=== PATIENT | female | born 1960 | race Caucasian/White ===

== ENCOUNTER 2016-10-06 16:20 | Inpatient (IN) | payer MEDICAID ==
--- NOTE | ~2016-10-06 | DS ---
Discharge Summary [place] [id number] [facility] [place]. [address] NAME: LEON RANDHAWA : 56 STATUS : DIS IN PAT#: [id number] AGE: 56 ADM/REG DATE : 10/06/16 MR#: [id number] REPORT SERV DATE: 10/15/16 DICTATED BY: LEANDRO ANGEL DATE: 10/14/16 REPORT STATUS : Draft TRANSCRIBED BY: MODL DATE: 10/14/16 ADMISSION DATE: 10/06/2016 DISCHARGE DATE: 10/14/2016 REASON FOR ADMISSION: Swollen lip and face with infection. HPI: Please refer to Dr. Chavez's history and physical dated 10/06/2016 for the patient's admission. In brief, the patient was admitted to the Hospitalist Service for facial cellulitis with abscess formation. HOSPITAL COURSE: From admission to 10/13/2016, please refer to Dr. Elizabeth Aguillon's interim summary. In brief, the patient was diagnosed with sepsis secondary to MRSA facial cellulitis with abscess status post I and D x2. In brief, Dr. Majano with Oral Maxillofacial Surgery performed 2 I and D's with cervical cultures coming back as positive for MRSA. She was treated with IV vancomycin. I assumed care of this patient on 10/13/[address] Aguillon who had also added Augmentin. Patient has remained stable. She has met maximal hospitalization and will be discharged today in stable condition to follow up with Dr. Majano. DISCHARGE DIAGNOSES: Sepsis secondary to MRSA, facial cellulitis with abscess status post I and D x2, left thigh MRSA abscess spontaneously resolved, protein S deficiency, hypothyroidism, morbid obesity, type 2 diabetes. PROCEDURES: Include, consultation with Dr. Majano of [facility], incision and debridement x2, CT scan of face with contrast, CT scan of the face and neck without contrast. DISCHARGE MEDICATIONS: Include, clindamycin 300 mg 4 times a day for 7 days; acyclovir; Cymbalta 60 mg daily and 30 mg at bedtime; Vytorin 1 tab at bedtime; folic acid; Neurontin 300 mg 3 times a day; insulin sliding scale Levemir 35 units at bedtime; Synthroid 50 mcg daily; methotrexate 12.5 mg every 7 days; Lopressor 50 mg twice; Nexium 40 mg at bedtime; Lyrica 150 mg 3 times a day; Zanaflex 4 mg at bedtime and twice a day p.r.n., Clinton p.r.n. pain; Desyrel 100 mg at bedtime; Coumadin 2 mg Wednesday, Wednesday, Wednesday, and Wednesday, Wednesday, , Wednesday; metformin 500 mg twice a day; calcium daily; Mobic 15 mg at bedtime; Atarax p.r.n. Patient to follow up with Dr. Majano in 1 week as a followup. This is Dr. Leandro Angel spending over 30 minutes on discharge planning and coordination of care on Ms. Ring LAMONT/MARGO Leandro Angel MD Discharge Summary [address] [address] NAME: LEON RANDHAWA : 56 STATUS : DIS IN PAT#: [id number] AGE: 56 ADM/REG DATE : 10/06/16 MR#: [id number] REPORT SERV DATE: 10/15/16 DICTATED BY: LEANDRO ANGEL DATE: 10/14/16 REPORT STATUS : Draft TRANSCRIBED BY: MARGO DATE: 10/14/16 / [id number]
--- NOTE | ~2016-10-06 | OP ---
Record Of Operation [facility] [address] [place]. [address] NAME: LEON RANDHAWA : 56 STATUS : ADM IN [facility]#: [id number] AGE: 56 ADM/REG DATE : 10/06/16 MR#: [id number] REPORT SERV DATE: 10/13/16 DICTATED BY: GRISELDA CONNOR DATE: 10/12/16 REPORT STATUS : Draft TRANSCRIBED BY: MODL DATE: 10/12/16 DATE OF PROCEDURE: 10/10/2016 This was performed at [facility]. PRIMARY SURGEON: Griselda Connor D.D.S., M.D. INDICATIONS FOR PROCEDURE: This is a 56-year-old female, who was an inpatient at [facility]. The patient was status post incision and drainage of the left lip and buccal space. On 10/06/2016, the patient was noted to have increased swelling and pain on the left side of the face. The patient was evaluated clinically and radiographically on 10/09/2016, and was noted to have an increasing left hydro operator space abscess. HISTORY: The patient has had a history of MRSA type infections. It was determined that the patient would benefit from incision and drainage of the left hydro operator space infection to be performed under general endotracheal tube anesthesia. The risks and benefits of the procedure were discussed with the patient. The risks included, but were not limited to bleeding, infection, further paresthesia, scarring as well as the possibility of future surgery. The patient expressed an understanding and wished to proceed with the planned procedure. PREOPERATIVE DIAGNOSIS: Left hydro operator space abscess. POSTOPERATIVE DIAGNOSIS: Left hydro operator space abscess. OPERATION PERFORMED: Incision and drainage of the left hydro operator spaces using an extraoral approach. ANESTHESIA: General endotracheal tube anesthesia. DRAINS: Three quarter-inch Darlington drains. ESTIMATED BLOOD LOSS: 10 mL. IV FLUIDS: Total of 300 mL of lactated Ringer's. SPECIMENS: Cultures were sent for aerobic and anaerobic evaluation. COMPLICATIONS: None. PROCEDURE: After adequate informed consent, the patient was taken to the main operating room and placed in semi-Santamaria position on the operating room table. After uneventful induction of general endotracheal tube anesthesia, the patient prepped and draped in standard sterile fashion for oral maxillofacial surgical procedure. Local anesthetic consisting of 2% lidocaine with 1:100,000 epinephrine was injected in a series of infiltrations and blocks into the left mandibular and left neck regions for a total of 6 mL. Attention was directed Record Of Operation [address] [place]. [address] NAME: LEON RANDHAWA : 56 STATUS : ADM IN PAT#: [id number] AGE: 56 ADM/REG DATE : 10/06/16 MR#: [id number] REPORT SERV DATE: 10/13/16 DICTATED BY: GRISELDA CONNOR DATE: 10/12/16 REPORT STATUS : Draft TRANSCRIBED BY: MARGO DATE: 10/12/16 to the left submandibular region where an incision was placed approximately 3 to 4 cm inferior to the inferior border. Two separate incisions of about 1.5 cm were placed in the submandibular submental spaces. Blunt dissection was performed using Cheryl hemostats in a superior direction. The inferior border was identified and dissection was carried on lateral surface of the mandible. A subperiosteal fashion dissection was carried intraorally on the left lateral surface of the mandible. A #15 blade was used to make an incision intraorally in the left vestibule. Further dissection was then carried onto the medial surface of the mandible and dissection was then also carried out in the submental space and carried superiorly to the mandibular lip. Sites were copiously irrigated with normal saline. Mild purulence was noted with some granulation tissue. At this time, a Darlington drain was placed in a [id number] fashion on the lateral surface of the mandible from the neck incision to the oral cavity. The drain was in place in the submandibular space on the medial surface of the mandible, and then a third Darlington drain was placed in the lower lip buccal space region. The Darlington drains were secured using 3-0 silk suture in an interrupted fashion. The sites were then copiously irrigated using normal saline. Prior to completion of the procedure, it was noted that sponge, needle, and instrument counts were correct. There were no complications during the procedure, and the patient was awakened from anesthesia and then transferred to the PACU awake and in good condition. ANTWON/MARGO Griselda Connor D.D.S., M.D. / [id number] CC: Elizabeth Aguillon M.D.
--- NOTE | ~2016-10-06 | IDS ---
Interim Discharge Summary [facility] [address] [place]. [address] NAME: LEON RANDHAWA : 56 STATUS : ADM IN LOCATED WITHIN [facility]#: [id number] AGE: 56 ADM/REG DATE : 10/06/16 MR#: [id number] REPORT SERV DATE: 10/13/16 DICTATED BY: MAKENZIE NICOLAS DATE: 10/12/16 REPORT STATUS : Draft TRANSCRIBED BY: MARGO DATE: 10/12/16 ADMISSION DATE: 10/06/2016 DISCHARGE DATE: DIAGNOSES: 1. Sepsis. 2. Methicillin-resistant Staphylococcus aureus, facial cellulitis with abscess, status post I and D x2. 3. Left thigh Methicillin-resistant Staphylococcus aureus abscess. 4. Protein S deficiency. 5. Hypothyroidism. 6. History of type 2 diabetes. CONSULTANTS: Oromaxillary surgeon, Dr. Henriquez and general surgeon, Dr. Gan. PROCEDURES: I and D x2 by oromaxillary surgeon of left buccal space abscess. HOSPITAL COURSE: Please see H and P dictated by Dr. Rosas. This is a 56 years old female with a past medical history of protein S deficiency, on chronic anticoagulation. Also, a history of MRSA in the past presented with left jaw induration with erythema and swollen lip. She had a CT of the face in the ER with findings of soft tissue cellulitis and findings of abscess, Oromaxillary Surgery was consulted. The patient is now status post I and D x2 by Oromaxillary Surgery. After her initial I and D, the patient had some improvement with induration for the first 24 hours and then developed worsening induration there after, therefore the patient was sent again for a repeat I and D by Oromaxillary Surgery. Her initial cultures grew out MRSA. She also had a repeat facial CT that did not reveal any recurrent abscesses after I and D, but does have still significant swelling. She continues on IV vanc and was also on IV Unasyn. We will transition to Augmentin and continue with IV vanc due to positive MRSA surgical cultures. Also the patient had a left thigh abscess that spontaneously drained on its own, did not require I and D by Dr. Gan, but culture is growing out MRSA as well, but has clinically improved; however, continues to have significant induration of the left jaw and lip secondary to the facial cellulitis. She is having slow improvement, but improving overall. She did require some FFP for her I and D procedure and was transitioned to heparin with warfarin. Her INR is 2 and recommend to discontinue heparin in the morning if still at 2 for her protein S deficiency. The patient will be seen by Dr. Angel, who will attend to this patient's care initiating on 10/13/2016. [facility]/MAR[place] Makenzie Nicolas M.D. Interim Discharge Summary [address] [address] NAME: LEON RANDHAWA : 56 STATUS : ADM IN PAT#: [id number] AGE: 56 ADM/REG DATE : 10/06/16 MR#: [id number] REPORT SERV DATE: 10/13/16 DICTATED BY: MAKENZIE NICOLAS DATE: 10/12/16 REPORT STATUS : Draft TRANSCRIBED BY: MARGO DATE: 10/12/16 / [id number] CC: Makenzie Nicolas M.D.
--- NOTE | ~2016-10-06 | HP ---
History And Physical [place] [id number] [facility] [place]. [address] NAME: LEON RANDHAWA : 56 STATUS : ADM IN [facility]#: [id number] AGE: 56 ADM/REG DATE : 10/06/16 MR#: [id number] REPORT SERV DATE: 10/06/16 DICTATED BY: RED ROSAS DATE: 10/06/16 REPORT STATUS : Draft TRANSCRIBED BY: MODL DATE: 10/06/16 DATE OF ADMISSION: 10/06/2016 CHIEF COMPLAINT: Swollen lip and face with gum infection. HISTORY OF PRESENT ILLNESS: The patient is a 56-year-old female with past medical history of protein S deficiency on chronic anticoagulation with warfarin, currently subtherapeutic who has recently been treated for zoster of the face and recently since Wednesday has had facial cellulitis, swelling, and decreased p.o. intake. It has been painful, radiation with drainage of pustular material on the inside of her mouth, lip line. The patient has had pain that has been severe up to 9/10 that has been quality without radiation, constant, does have neck erythema and lymphadenopathy on left side associated with occasional fevers, decreased p.o. intake, swelling, redness, and pain. No nausea or vomiting. No chills or shortness of breath. No palpitations or weakness but overall generalized malaise feeling. The patient reports that she also last year had all of her teeth removed from [facility] due to chronic steroid use and weakening of the gum line teeth. Symptoms are worsened with palpation. No relieving symptoms. Symptoms are still currently present. The patient has had fever up to 102 and sent here by PCP for evaluation. REVIEW OF SYSTEMS: GENERAL: Positive for fevers, no chills. EYES: No eye pain or visual changes. ENT: Does have sore mouth, lip. Absent teeth after removal. Dental pain, gumline pain. NEURO: No headaches, abnormal gait. SKIN: No rashes but does have erythema at left facial site. RESPIRATORY: No shortness of breath or dyspnea on exertion. CV: No chest pain or palpitations but does have slightly fast heart rate. GI: No nausea or vomiting, but decreased p.o. intake. : No dysuria or hematuria. MUSCULOSKELETAL: Does have myalgias, swelling, and redness. ENDO: Fatigue and high blood sugars. HEME: Does have bleeding disorder with protein S deficiency along with DVT history but nothing currently. IMMUNOLOGIC: No rhinorrhea. PSYCH: No anxiety or confusion. Does have schizophrenia history but stable. PAST MEDICAL HISTORY: Does have diabetes insulin dependent, hypertension, hypothyroidism, protein S deficiency, TIA, DVT history, schizophrenia stable, recent zoster, and removal of all teeth secondary to chronic steroids. PAST SURGICAL HISTORY: Two back surgeries, , femur, gallbladder, oral surgery. SOCIAL HISTORY: No alcohol, illicits, or tobacco currently. FAMILY HISTORY: Heart disease, diabetes, osteoporosis, and RA. History And Physical [address] [address] NAME: LEON RANDHAWA : 56 STATUS : ADM IN [facility]#: [id number] AGE: 56 ADM/REG DATE : 10/06/16 MR#: [id number] REPORT SERV DATE: 10/06/16 DICTATED BY: RED ROSAS DATE: 10/06/16 REPORT STATUS : Draft TRANSCRIBED BY: MARGO DATE: 10/06/16 ALLERGIES: TO SULFA, TAMIFLU, VITAMIN D2, CODEINE, NAPROXEN, ERYTHROMYCIN, CLARITHROMYCIN, PUMPKIN, AND STAR ANISE. HOME MEDICATIONS: Acyclovir, Cymbalta, Nexium, Vytorin, folic acid, Neurontin, Bellerose, Atarax, NovoLog, Levemir, Synthroid, Mobic, Glucophage, methotrexate, Lopressor, Lyrica, Zanaflex, trazodone, calcium, Bepreve, and Coumadin. PHYSICAL EXAMINATION: VITAL SIGNS: The patient's blood pressure 142/63, temperature 99, pulse 101, respirations 16, O2 sats 99% on room air. GENERAL: No acute distress but mild discomfort, well developed, well nourished. HEAD: Normocephalic, atraumatic. EYES: No scleral icterus. ENT: Lower lip swelling with left side erythema radiating to left jaw and neck with pustular formation and multiple vesicles, and inner mouth does have healed herpetic lesions on the gumline and pustular lesions on gumline with tenderness and increased erythema. Edentulous after teeth removal. RESPIRATORY: Clear to auscultation. No wheezes, rales. CV: Tachycardic. No rubs or gallops. GI: Soft, nontender, and nondistended. Bowel sounds positive. : Deferred. MUSCULOSKELETAL: Moves all extremities x4. SKIN: Warm and dry. LYMPH: She does have left-sided cervical lymphadenopathy with mild tenderness. HEME: No bleeding or bruising acutely. NEURO: Alert and oriented. Moves all extremities x4. SKIN: Warm and dry. DATA: Lactate 1.7. BMP grossly within normal limits except for glucose at 250. CBC: WBC count 19.5, H and H 13.1/ 39.6, platelets 326, INR 1.3 subtherapeutic from goal on warfarin of 2-3. CT virtual radiology lower lip and pre-mandibular soft tissue cellulitis; multi-loculated complex fluid attenuation region suspicious for abscess formation. ASSESSMENT AND PLAN: 1. Facial cellulitis with abscess formation. 2. Diabetes type 2. 3. Hypertension. 4. Hypothyroidism. 5. Protein S deficiency. 6. Transient ischemic attack and deep vein thrombosis history. 7. Schizophrenia. 8. Sepsis. 9. Recent zoster. PLAN: History And Physical [address] [address] NAME: LEON RANDHAWA : 56 STATUS : ADM IN [facility]#: [id number] AGE: 56 ADM/REG DATE : 10/06/16 MR#: [id number] REPORT SERV DATE: 10/06/16 DICTATED BY: RED ROSAS DATE: 10/06/16 REPORT STATUS : Draft TRANSCRIBED BY: MARGO DATE: 10/06/16 1. For facial cellulitis with abscess formation; Unasyn, IV fluids IV antibiotics. Pain control. We will have OMS evaluate for possible surgical drainage. 2. Diabetes type 2. Sliding scale insulin. Hold metformin and reduce dose of Levemir until able to tolerate p.o. 3. Hypertension, on medications. Metoprolol. 4. Hypothyroidism, on replacement. 5. Protein S deficiency on warfarin but subtherapeutic. We will place on heparin drip with history of TIA and DVT history. No acute bolus at this time and restart warfarin once surgical evaluation undergone. 6. Schizophrenia, stable per family and the patient. 7. Sepsis, tachycardia with leukocytosis, subjective fever as outside. IV antibiotics, IV fluids. Lactate within normal limits. Culture still pending. 8. Recent zoster. Continue suppression dose acyclovir. The patient has been on this for three months already. All questions answered to the patient and family at bedside. I anticipate greater than two midnight inpatient stay. DDN/MODL Red Rosas MD / [id number] CC: Elizabeth Aguillon M.D.
--- NOTE | ~2016-10-06 | OP ---
Record Of Operation [facility] [address] [place]. [address] NAME: LEON RANDHAWA : 56 STATUS : ADM IN [facility]#: [id number] AGE: 56 ADM/REG DATE : 10/06/16 MR#: [id number] REPORT SERV DATE: 10/07/16 DICTATED BY: DATE: REPORT STATUS : Draft TRANSCRIBED BY: MODL DATE: 10/07/16 DATE OF PROCEDURE: PROCEDURE: I and D of mental and left buccal space abscess. PREOPERATIVE DIAGNOSIS: Facial cellulitis. POSTOPERATIVE DIAGNOSIS: Facial cellulitis. PROCEDURE: As before. 1. I and D of left mental space. 2. I and D of left buccal space. ANESTHESIA: General endotracheal tube anesthesia. FLUIDS: Per anesthesia. BLOOD LOSS: Less than 10 mL. COMPLICATIONS: None. INDICATIONS FOR PROCEDURES: This 56-year-old female presented to the ED complaining of facial pain and swelling. The patient was admitted due to history of blood clots and nontherapeutic INR. The patient was then subsequently placed on a heparin drip and oral maxillofacial surgery was consulted for the evaluation of the facial cellulitis. Upon clinical and radiographic evaluation, the patient was noted to need the above-listed procedures. Risks included but not limited to, bleeding, further infection, need for further procedure. PROCEDURE IN DETAIL: The patient was brought into the operating room. The patient was moved to the operating table under her own strength. The patient was then orally intubated by Anesthesia without complication. Once the patient was orally intubated, the patient was prepped and draped in a routine sterile fashion. Once the patient was prepped and draped, 10 mL of 0.5% Marcaine with 1:200,000 epinephrine was used to make labial and left facial blocks. Once this was completed, a 15 blade was used to make an incision on the right and left labial mucosa and the left buccal mucosa. Blunt dissection was then completed using hemostat. Copious amounts of purulent pus was expressed. Cultures were taken. Once this was completed, multiple loculations were broken up in the left buccal area as well as the labial and mental area of the patient's face. After all the loculations were broken up, copious amounts of irrigation were used. Once this was completed, the patient's through-and through wound of the inferior aspect of the left epidermis was dressed using a Band-Aid. The patient was then extubated by anesthesia without complication and transferred to PACU in stable condition. Record Of Operation [address] [place]. [address] NAME: LEON RANDHAWA : 56 STATUS : ADM IN PAT#: [id number] AGE: 56 ADM/REG DATE : 10/06/16 MR#: [id number] REPORT SERV DATE: 10/07/16 DICTATED BY: DATE: REPORT STATUS : Draft TRANSCRIBED BY: MARGO DATE: 10/07/16 [facility]/[place] Travis Henriquez DDS / [id number] CC: Elizabeth Aguillon M.D.
[~2016-10-06 16:20] MED LIST: ABILIFY10 PO; ATEN25 PO; Benefiber; C25 PO; C5 PO; COUMADIN4 MG PO; CYMBALTA60 PO; DIL2TAB PO; DSS PO; FISH OIL; FISH-EPA1000 MG PO; FOLIC PO; FOSAMAX70 MG PO; GLUCOPHAGE1000 MG PO; GLUCPH PO; IBUDONE1 TA1 OR; IBUDONE1 TA1 PO; KLOR-CON 1010 MEQ PO; KLOR-CON M2020 MEQ PO; L80 PO; LEVEMIR SC; LIDODERM T; LORT7 PO; LOTE5 PO; LYRICA100 MG PO; MIRALAXPKT PO; NEXIUM40 PO; NOVOLOG SC; NYSTOP100000 MG TOP; OS500+D PO; P5 PO; PCET PO; SEROQUEL XR150 MG PO; SEROQUEL50 MG PO; SPIRO25 PO; SPIRO50 PO; SUPER B-100 PO; SYN.05 PO; SYN125 PO; VICOPROFEN 7.5/1 TAB PO; VICTOZA; VICTOZA PO; VITAMIN C100 MG PO; VITAMIN D; VITAMIN D1000 UNI1 PO; VYTORIN 10/80 T1 TAB PO; ZANAFLEX 4 MG TA4 MG PO; ZYRTEC ALLGY10 MG PO; [UNRECOGNIZED DRUG - OTHER]; [UNRECOGNIZED DRUG - OTHER] SQ
[2016-10-06 17:50] LABS: BASOPHILS 0.3 %; BASOPHILS ABSOLUTE 0.06 10/3/uL (0.0-0.16); EOSINOPHILS 0.1 %; EOSINOPHILS ABSOLUTE 0.01 10/3/uL (0.0-0.53); HEMATOCRIT 39.6 % (36.0-48.0); HEMOGLOBIN 13.1 g/dL (12.0-16.0); IMMATURE GRANULOCYTES 0.4 %; IMMATURE GRANULOCYTES ABSOLUTE 0.08 10/3/uL (0.0-0.11); LYMPHOCYTES 10.1 %; LYMPHOCYTES ABSOLUTE 1.98 10/3/uL (0.67-4.30); MEAN CORPUS HGB CONC 33.1 g/dL (32.0-36.0); MEAN CORPUSCULAR VOLUME 90.8 fL (80-100); MEAN PLATELET VOLUME 8.9 fL (9.2-13.0); MONOCYTES 5.4 %; MONOCYTES ABSOLUTE 1.05 10/3/uL (0.21-1.20); NEUTROPHILS 83.7 %; NEUTROPHILS ABSOLUTE 16.34 10/3/uL (2.02-8.40); RBC DISTRIBUTION WIDTH 16.3 % (12.0-16.0); RED CELL COUNT 4.36 10/6/uL (4.0-5.6)
[2016-10-06 17:51] LABS: ER CBC TAT 0 Hrs 05 Mins; MANUAL DIFF NO %; PLATELET COUNT 326 10/3/uL (150-400); WHITE BLOOD CELLS 19.5 10/3/uL (4.5-10.5)
[2016-10-06 17:57] LABS: INTERNATIONAL NORMAL RATI 1.3 UNITS (-)
[2016-10-06 17:58] LABS: PARTIAL THROMBO TIME 37.7 SEC (22.5-37.2); PROTIME (NOT ORD) 15.9 SEC (12.0-14.5)
[2016-10-06 18:02] LABS: BUN (BLOOD UREA NITROGEN) 10 MG/DL (6-23); CALCIUM, SERUM 9.3 MG/DL (8.5-10.4); CHLORIDE, SERUM 98 MMOL/L (96-112); CO2 (CARBON DIOXIDE) 25 MMOL/L (24-34); CREATININE 0.85 MG/DL (0.55-1.02); GFR AFRICAN AMERICAN 88 ML/MIN (>=60); GFR NON AFRICAN AMERICAN 76 ML/MIN (>=60); GLUCOSE, SERUM 250 MG/DL (60-99); POTASSIUM, SERUM 3.6 MMOL/L (3.5-5.3); SODIUM, SERUM 136 MMOL/L (135-148)
[2016-10-06 19:33] LABS: LACTATE 1.7 MMOL/L (0.3-2.4)
[2016-10-06] MEDS ORDERED: CYMBALTA60 PO (20:51)
[2016-10-06] MEDS ORDERED: LYRICA150 MG PO (20:52)
[2016-10-06] MEDS ORDERED: TRAZ100 PO (20:52)
[2016-10-06] MEDS ORDERED: SYN.05 PO (20:52)
[2016-10-06] MEDS ORDERED: LOP50 PO (20:52)
[2016-10-06] MEDS ORDERED: NORCO1 TA1 PO (20:53)
[2016-10-06] MEDS ORDERED: VYTORIN 10/80 T1 TAB PO (20:53)
[2016-10-06] MEDS ORDERED: FOLIC PO (20:53)
[2016-10-06] MEDS ORDERED: LEVEMIR SC (20:54)
[2016-10-06] MEDS ORDERED: NOVOLOG SC (20:54)
[2016-10-06] MEDS ORDERED: GLUCPH PO (20:54)
[2016-10-06] MEDS ORDERED: CALCIUM PO (20:55)
[2016-10-06] MEDS ORDERED: MOBIC15 MG PO (20:56)
[2016-10-06] MEDS ORDERED: ATARAX50B PO (20:57)
[2016-10-06] MEDS ORDERED: ZANAFLEX 4 MG TA4 MG PO ×2 (20:57→20:58)
[2016-10-06] MEDS ORDERED: NEUR800 PO (20:58)
[2016-10-06] MEDS ORDERED: MTX2.5 PO (20:58)
[2016-10-06] MEDS ORDERED: NEXIUM40 PO (20:59)
[2016-10-06] MEDS ORDERED: BEPREVE OPH (21:00)
[2016-10-06] MEDS ORDERED: C2 PO (21:02)
[2016-10-06] MEDS ORDERED: COUMADIN3 MG PO (21:03)
[2016-10-06] MEDS ORDERED: CYMBALTA30 PO (21:06)
[2016-10-06] MEDS ORDERED: ZOVI800 PO (21:25)
[2016-10-07 01:18] LABS: BASOPHILS 0.3 %; BASOPHILS ABSOLUTE 0.05 10/3/uL (0.0-0.16); EOSINOPHILS 0.6 %; EOSINOPHILS ABSOLUTE 0.09 10/3/uL (0.0-0.53); HEMOGLOBIN 11.3 g/dL (12.0-16.0); IMMATURE GRANULOCYTES 0.3 %; IMMATURE GRANULOCYTES ABSOLUTE 0.05 10/3/uL (0.0-0.11); LYMPHOCYTES 13.6 %; LYMPHOCYTES ABSOLUTE 2.02 10/3/uL (0.67-4.30); MEAN CORPUSCULAR HEMOGLOB 30.1 pg (26.0-34.0); MEAN CORPUSCULAR VOLUME 91.2 fL (80-100); MEAN PLATELET VOLUME 8.9 fL (9.2-13.0); MONOCYTES 7.4 %; NEUTROPHILS 77.8 %; PLATELET COUNT 300 10/3/uL (150-400); RBC DISTRIBUTION WIDTH 16.4 % (12.0-16.0); RED CELL COUNT 3.75 10/6/uL (4.0-5.6); WHITE BLOOD CELLS 14.8 10/3/uL (4.5-10.5)
[2016-10-07 01:20] LABS: HEMATOCRIT 34.2 % (36.0-48.0); MANUAL DIFF NO %
[2016-10-07 01:46] LABS: ALKALINE PHOSPHATASE 95 U/L (45-117); BUN (BLOOD UREA NITROGEN) 8 MG/DL (6-23); CALCIUM, SERUM 8.5 MG/DL (8.5-10.4); CHLORIDE, SERUM 101 MMOL/L (96-112); CO2 (CARBON DIOXIDE) 24 MMOL/L (24-34); CREATININE 0.62 MG/DL (0.55-1.02); GFR AFRICAN AMERICAN 115 ML/MIN (>=60); GFR NON AFRICAN AMERICAN 99 ML/MIN (>=60); GLUCOSE, SERUM 273 MG/DL (60-99); POTASSIUM, SERUM 3.8 MMOL/L (3.5-5.3); SGOT(AST) 18 U/L (5-40); SGPT(ALT) 15 U/L (5-65); SODIUM, SERUM 137 MMOL/L (135-148); TOTAL BILIRUBIN 0.5 MG/DL (0-1.2); TOTAL PROTEIN 7.1 G/DL (6.0-8.5)
[2016-10-07 01:50] LABS: A/G RATIO 0.6 (0.7-1.9); ALBUMIN 2.7 G/DL (3.5-5.0); GLOBULIN 4.4 G/DL (2.5-4.1)
[2016-10-07 02:24] LABS: PROCALCITONIN 17.11 ng/mL (<0.5)
[2016-10-07 06:58] LABS: PARTIAL THROMBO TIME 76.6 SEC (22.5-37.2)
[2016-10-07 07:08] LABS: BASOPHILS 0.3 %; BASOPHILS ABSOLUTE 0.05 10/3/uL (0.0-0.16); EOSINOPHILS 1.3 %; EOSINOPHILS ABSOLUTE 0.19 10/3/uL (0.0-0.53); HEMATOCRIT 31.3 % (36.0-48.0); HEMOGLOBIN 10.2 g/dL (12.0-16.0); IMMATURE GRANULOCYTES 0.5 %; IMMATURE GRANULOCYTES ABSOLUTE 0.07 10/3/uL (0.0-0.11); LYMPHOCYTES ABSOLUTE 3.04 10/3/uL (0.67-4.30); MEAN CORPUS HGB CONC 32.6 g/dL (32.0-36.0); MEAN CORPUSCULAR VOLUME 92.1 fL (80-100); MEAN PLATELET VOLUME 9.1 fL (9.2-13.0); MONOCYTES 7.9 %; NEUTROPHILS ABSOLUTE 10.63 10/3/uL (2.02-8.40); PLATELET COUNT 285 10/3/uL (150-400); RBC DISTRIBUTION WIDTH 16.6 % (12.0-16.0); WHITE BLOOD CELLS 15.2 10/3/uL (4.5-10.5)
[2016-10-07 07:10] LABS: MANUAL DIFF NO %
[2016-10-07 07:18] LABS: INTERNATIONAL NORMAL RATI 1.3 UNITS (-); PROTIME (NOT ORD) 15.9 SEC (12.0-14.5)
[2016-10-07 07:28] LABS: BUN (BLOOD UREA NITROGEN) 8 MG/DL (6-23); CALCIUM, SERUM 8.6 MG/DL (8.5-10.4); CHLORIDE, SERUM 100 MMOL/L (96-112); CO2 (CARBON DIOXIDE) 25 MMOL/L (24-34); CREATININE 0.63 MG/DL (0.55-1.02); GFR AFRICAN AMERICAN 115 ML/MIN (>=60); GFR NON AFRICAN AMERICAN 99 ML/MIN (>=60); GLUCOSE, SERUM 258 MG/DL (60-99); PHOSPHORUS, SERUM 2.6 MG/DL (2.5-4.5); POTASSIUM, SERUM 3.9 MMOL/L (3.5-5.3); SODIUM, SERUM 136 MMOL/L (135-148)
[2016-10-07 12:32] LABS: INTERNATIONAL NORMAL RATI 1.4 UNITS (-)
[2016-10-08 06:24] LABS: BASOPHILS 0.5 %; BASOPHILS ABSOLUTE 0.05 10/3/uL (0.0-0.16); EOSINOPHILS 3.6 %; EOSINOPHILS ABSOLUTE 0.35 10/3/uL (0.0-0.53); HEMATOCRIT 29.4 % (36.0-48.0); HEMOGLOBIN 9.3 g/dL (12.0-16.0); IMMATURE GRANULOCYTES 0.3 %; IMMATURE GRANULOCYTES ABSOLUTE 0.03 10/3/uL (0.0-0.11); LYMPHOCYTES 29.5 %; LYMPHOCYTES ABSOLUTE 2.87 10/3/uL (0.67-4.30); MEAN CORPUS HGB CONC 31.6 g/dL (32.0-36.0); MEAN CORPUSCULAR HEMOGLOB 28.6 pg (26.0-34.0); MEAN CORPUSCULAR VOLUME 90.5 fL (80-100); MEAN PLATELET VOLUME 8.9 fL (9.2-13.0); MONOCYTES 8.2 %; NEUTROPHILS 57.9 %; NEUTROPHILS ABSOLUTE 5.62 10/3/uL (2.02-8.40); PLATELET COUNT 256 10/3/uL (150-400); RBC DISTRIBUTION WIDTH 16.5 % (12.0-16.0); RED CELL COUNT 3.25 10/6/uL (4.0-5.6); WHITE BLOOD CELLS 9.7 10/3/uL (4.5-10.5)
[2016-10-08 06:26] LABS: INTERNATIONAL NORMAL RATI 1.7 UNITS (-)
[2016-10-08 06:27] LABS: MANUAL DIFF NO %
[2016-10-08 06:29] LABS: BUN (BLOOD UREA NITROGEN) 5 MG/DL (6-23); CALCIUM, SERUM 8.3 MG/DL (8.5-10.4); CHLORIDE, SERUM 104 MMOL/L (96-112); CO2 (CARBON DIOXIDE) 27 MMOL/L (24-34); CREATININE 0.55 MG/DL (0.55-1.02); GFR AFRICAN AMERICAN 120 ML/MIN (>=60); GFR NON AFRICAN AMERICAN 103 ML/MIN (>=60); POTASSIUM, SERUM 4.1 MMOL/L (3.5-5.3); SODIUM, SERUM 140 MMOL/L (135-148)
[2016-10-08 06:30] LABS: GLUCOSE, SERUM 162 MG/DL (60-99)
[2016-10-08 07:31] LABS: PROCALCITONIN 6.42 ng/mL (<0.5)
[2016-10-09 01:19] LABS: INTERNATIONAL NORMAL RATI 2.1 UNITS (-)
[2016-10-09 01:20] LABS: PARTIAL THROMBO TIME 85.1 SEC (22.5-37.2); PROTIME (NOT ORD) 23.7 SEC (12.0-14.5)
[2016-10-10 06:39] LABS: INTERNATIONAL NORMAL RATI 2.1 UNITS (-); PROTIME (NOT ORD) 23.1 SEC (12.0-14.5)
[2016-10-10 06:47] LABS: BUN (BLOOD UREA NITROGEN) 4 MG/DL (6-23); CALCIUM, SERUM 9.1 MG/DL (8.5-10.4); CHLORIDE, SERUM 104 MMOL/L (96-112); CO2 (CARBON DIOXIDE) 31 MMOL/L (24-34); CREATININE 0.45 MG/DL (0.55-1.02); GFR AFRICAN AMERICAN 128 ML/MIN (>=60); GFR NON AFRICAN AMERICAN 110 ML/MIN (>=60); GLUCOSE, SERUM 149 MG/DL (60-99); SODIUM, SERUM 144 MMOL/L (135-148)
[2016-10-10 13:46] LABS: INTERNATIONAL NORMAL RATI 1.5 UNITS (-)
[2016-10-10 13:47] LABS: PROTIME (NOT ORD) 18.1 SEC (12.0-14.5)
[2016-10-11 05:19] LABS: HEMATOCRIT 35.2 % (36.0-48.0); HEMOGLOBIN 11.2 g/dL (12.0-16.0)
[2016-10-11 05:24] LABS: INTERNATIONAL NORMAL RATI 1.7 UNITS (-); PROTIME (NOT ORD) 19.9 SEC (12.0-14.5)
[2016-10-11 05:25] LABS: PARTIAL THROMBO TIME 78.5 SEC (22.5-37.2)
[2016-10-12 04:55] LABS: BASOPHILS 0.5 %; BASOPHILS ABSOLUTE 0.03 10/3/uL (0.0-0.16); EOSINOPHILS 4.5 %; EOSINOPHILS ABSOLUTE 0.27 10/3/uL (0.0-0.53); HEMATOCRIT 31.8 % (36.0-48.0); IMMATURE GRANULOCYTES ABSOLUTE 0.06 10/3/uL (0.0-0.11); LYMPHOCYTES 49.1 %; LYMPHOCYTES ABSOLUTE 2.97 10/3/uL (0.67-4.30); MEAN CORPUS HGB CONC 31.4 g/dL (32.0-36.0); MEAN CORPUSCULAR HEMOGLOB 29.5 pg (26.0-34.0); MEAN PLATELET VOLUME 8.9 fL (9.2-13.0); MONOCYTES 8.6 %; MONOCYTES ABSOLUTE 0.52 10/3/uL (0.21-1.20); NEUTROPHILS 36.3 %; PLATELET COUNT 264 10/3/uL (150-400); RBC DISTRIBUTION WIDTH 15.9 % (12.0-16.0); RED CELL COUNT 3.39 10/6/uL (4.0-5.6); WHITE BLOOD CELLS 6.1 10/3/uL (4.5-10.5)
[2016-10-12 04:56] LABS: MANUAL DIFF NO %; MEAN CORPUSCULAR VOLUME 93.8 fL (80-100)
[2016-10-12 05:06] LABS: BUN (BLOOD UREA NITROGEN) 5 MG/DL (6-23); CALCIUM, SERUM 8.7 MG/DL (8.5-10.4); CHLORIDE, SERUM 100 MMOL/L (96-112); CO2 (CARBON DIOXIDE) 33 MMOL/L (24-34); CREATININE 0.51 MG/DL (0.55-1.02); GFR AFRICAN AMERICAN 123 ML/MIN (>=60); GFR NON AFRICAN AMERICAN 106 ML/MIN (>=60); POTASSIUM, SERUM 3.9 MMOL/L (3.5-5.3); SODIUM, SERUM 142 MMOL/L (135-148)
[2016-10-12 05:07] LABS: GLUCOSE, SERUM 192 MG/DL (60-99)
[2016-10-12 05:10] LABS: PROTIME (NOT ORD) 22.4 SEC (12.0-14.5)
[2016-10-13 04:55] LABS: PROTIME (NOT ORD) 22.7 SEC (12.0-14.5)
[2016-10-13 05:24] LABS: BUN (BLOOD UREA NITROGEN) 4 MG/DL (6-23); CALCIUM, SERUM 9.3 MG/DL (8.5-10.4); CHLORIDE, SERUM 103 MMOL/L (96-112); CO2 (CARBON DIOXIDE) 31 MMOL/L (24-34); GFR AFRICAN AMERICAN 124 ML/MIN (>=60); GFR NON AFRICAN AMERICAN 107 ML/MIN (>=60); GLUCOSE, SERUM 101 MG/DL (60-99); POTASSIUM, SERUM 4.1 MMOL/L (3.5-5.3); SODIUM, SERUM 143 MMOL/L (135-148)
[2016-10-14 05:14] LABS: INTERNATIONAL NORMAL RATI 2.1 UNITS (-); PROTIME (NOT ORD) 23.2 SEC (12.0-14.5)
[2016-10-14] MEDS ORDERED: CLEOCIN300 MG PO (11:06)
[2016-10-14] MEDS ORDERED: PERCOCET 10/3251 TAB PO (11:06)
== END 2016-10-14 13:17 | disposition home or self-care (01) | DRG 854 ==
LOC: ER 16:20 → 7NO 21:57
PROVIDERS: Dentist Oral and Maxillofacial Surgery; Internal Medicine; Physician Assistant; Student in an Organized Health Care Education/Training Program
PROC: 0C940ZZ Drainage of Buccal Mucosa, Open Approach (ICD-10-PCS; principal; 2016-10-07 12:15)
PROC: 0W9500Z Drainage of Lower Jaw with Drainage Device, Open Approach (ICD-10-PCS; 2016-10-10)
PROC: 30233K1 Transfusion of Nonautologous Frozen Plasma into Peripheral Vein, Percutaneous Approach (ICD-10-PCS; 2016-10-10)
DX: A41.9 Sepsis, unspecified organism (principal); D68.59 Other primary thrombophilia; L03.211 Cellulitis of face; E11.9 Type 2 diabetes mellitus without complications; I10 Essential (primary) hypertension; E03.9 Hypothyroidism, unspecified; Z86.73 Personal history of transient ischemic attack (TIA), and cerebral infarction without residual deficits; F20.9 Schizophrenia, unspecified; Z86.718 Personal history of other venous thrombosis and embolism; L02.426 Furuncle of left lower limb; B95.62 Methicillin resistant Staphylococcus aureus infection as the cause of diseases classified elsewhere
CPT/HCPCS: 36415; 70486; 70487; 70490; 80048; 80053; 80202; 82962; 83605; 83735; 84100; 84145; 84443; 84703; 85014; 85018; 85025; 85610; 85730; 86850; 86900; 86901; 87015; 87040; 87070; 87075; 87077; 87102; 87116; 87186; 87205; 93005; 96374; 96375; 99285; A9270-GY; C9113; J0295; J0330; J0690; J1940; J2250; J2270; J2405; J3010; J3370; J8610; P9017; Q9967

== ENCOUNTER 2016-10-26 21:08 | Inpatient (IN) | payer MEDICAID ==
--- NOTE | ~2016-10-26 | HP ---
History And Physical [address] [place]. [address] NAME: LEON RANDHAWA : 56 STATUS : ADM Radha PAT#: [id number] AGE: 56 ADM/REG DATE : 10/26/16 MR#: [id number] REPORT SERV DATE: 10/27/16 DICTATED BY: RED ROSAS DATE: 10/27/16 REPORT STATUS : Draft TRANSCRIBED BY: MODL DATE: 10/27/16 DATE OF ADMISSION: 10/26/2016 CHIEF COMPLAINT: Repeat swelling in jaw and throat. HISTORY OF PRESENT ILLNESS: The patient is a 56-year-old female with past medical history of protein S deficiency, diabetes, hypothyroidism, who had recent admissions for facial jaw abscess requiring two surgical clean outs, was noted to be MRSA positive, placed on clindamycin. The patient was doing well up until four days ago, which she had completed her seven days discharge course of clindamycin and symptoms started to reoccur with pain, swelling, and decreased ability to take p.o. Symptoms got progressively worse and was brought in by family member as the patient reports that symptoms are constant and moderate, but dull quality. She does have radiation to almost a year associated with fevers at home and swelling, no vomiting, nauseous, decreased p.o. intake, and has reported having occasional areas of drainage. No cough or palpitations. The symptoms are worsened with palpation and eating, relieved by rest, but still slightly uncomfortable. Symptoms are currently present. REVIEW OF SYSTEMS: A 10-point review of systems negative for that noted in the HPI. PAST MEDICAL HISTORY: Insulin-dependent diabetes, hypertension, hypothyroidism, protein S deficiency, TIA, DVT, history schizophrenia, recent zoster, and removal of all teeth secondary to steroids, recent two times surgical clean out for infection with MRSA. PAST SURGICAL HISTORY: Two back surgeries, , femur, gallbladder, oral surgery. SOCIAL HISTORY: No alcohol, illicits, or tobacco. FAMILY HISTORY: Heart disease, diabetes, osteoporosis, RA. ALLERGIES: SULFA, TAMIFLU, VITAMIN D2, CODEINE, NAPROSYN, ERYTHROMYCIN, CLARITHROMYCIN, PUMPKIN AND STAR ANISE. HOME MEDICATIONS: Acyclovir, Cymbalta, Nexium, Vytorin, folic acid, Neurontin, [place], Atarax, NovoLog, Levemir, Synthroid, Mobic, Glucophage, methotrexate, Lopressor, Percocet, Oyster shell, Lyrica, Zanaflex, trazodone, Bepreva, and Coumadin. PHYSICAL EXAMINATION: VITAL SIGNS: The patient's blood pressure is 140/66, temperature 98.3, pulse 78, respirations 16, and O2 saturation 100% on room air. GENERAL: Mild discomfort. Well developed and well nourished. EYES: No scleral icterus. EOMI. ENT: No gross drainage on internal oral cavity. Edentulous but external jawline noted for increased tenderness to pain, nonmobile with drainage and with mild increased lymphadenopathy in the cervical chain. Nares patent. History And Physical [address] [address] NAME: LEON RANDHAWA : 56 STATUS : ADM Radha PAT#: [id number] AGE: 56 ADM/REG DATE : 10/26/16 MR#: [id number] REPORT SERV DATE: 10/27/16 DICTATED BY: RED ROSAS DATE: 10/27/16 REPORT STATUS : Draft TRANSCRIBED BY: MARGO DATE: 10/27/16 RESPIRATORY: Clear to auscultation. No wheezes, rales, or rhonchi. CV: Regular rate. No rubs or gallops. GI: Soft, nontender, nondistended. Bowel sounds positive. : Deferred. MUSCULOSKELETAL: Moves all extremities x4. SKIN: Warm and dry. LYMPH NODES: Does have cervical lymphadenopathy on the left side. HEME: No bleeding or bruising. NEURO: Alert and oriented. PSYCH: Appropriate mood and affect. IMAGING/LABORATORY DATA: EKG, normal sinus rhythm, rate of 78, QTc 501. CBC grossly within normal limits. CMP within normal limits with glucose of 142. Face with contrast, infiltration of subcutaneous fat planes along the midbody to the mental region of the left mental status and cellulitis pattern. No discrete abscess. Otherwise, unremarkable face CT. ASSESSMENT AND PLAN: 1. For MRSA cellulitis left face with recurrence. She has had two surgical drainage. CT does not show any acute abscess formation, but does have "increased tenderness." Cultures noted multiple MRSA cultures, vanc and clind sensitive. The symptoms occurred after completion of clindamycin with recurrent cellulitis episode. We will change to vanc ID consult due to MRSA and recurrent episodes. We will defer to a.m. ID team for OMS evaluation. Currently, I do not see surgical intervention at this time; however, after we will need to reassess in a.m. after IV antibiotics given. 2. Diabetes type 2. Sliding scale insulin. Decrease home Levemir and switched to p.o., decreased. 3. Protein S deficiency. 4. TIA/DVT history, on Coumadin. 5. Herpes zoster, on chronic acyclovir. 6. Hypothyroidism, on replacement. All questions were answered. The patient's family is at bedside. DISPOSITION: Pending above. DDN/MODL Red Rosas MD / [id number] CC: History And Physical [address] [address] NAME: LEON RANDHAWA : 56 STATUS : ADM Radha PAT#: [id number] AGE: 56 ADM/REG DATE : 10/26/16 MR#: [id number] REPORT SERV DATE: 10/27/16 DICTATED BY: RED ROSAS DATE: 10/27/16 REPORT STATUS : Draft TRANSCRIBED BY: MODL DATE: 10/27/16 Sumanth Moreira II, MD Unknown
--- NOTE | ~2016-10-26 | CN ---
Consultation Report [facility] [address] [place]. [address] NAME: LEON RANDHAWA : 56 STATUS : ADM Radha PAT#: [id number] AGE: 56 ADM/REG DATE : 10/26/16 MR#: [id number] REPORT SERV DATE: 10/27/16 DICTATED BY: JACQUELINE EDGAR DATE: 10/27/16 REPORT STATUS : Draft TRANSCRIBED BY: MODMiguel DATE: 10/27/16 INFECTIOUS DISEASE CONSULTATION DATE OF CONSULTATION: REFERRING PHYSICIAN: Sumanth Moreira II, MD REASON FOR REFERRAL: Evaluation and treatment of facial abscess that is persistent. HISTORY OF PRESENT ILLNESS: The patient is a 56-year-old female, with a history of hypothyroidism, diabetes mellitus, protein S deficiency. She per the chart has had a diagnosis in the past for schizophrenia. She had all of her teeth pulled last fall and said she has had irritation in her mouth since then. She was admitted here at the beginning of October after developing pain and swelling in her left lower lip and along her jaw. In late September, she had an area opened up from the inside by Oral Surgery and it showed just gram- positive cocci and clusters on the Gram stain and grew pure methicillin-resistant Staph aureus. Anaerobic cultures were negative. The pain and swelling persisted, a repeat CT scan showed extension of the infection into the inventory analyst space on the left side, and so she was taken to surgery on 10/12/[address] Majano of Oral Surgery, and underwent incision and drainage of that area of an abscess that also grew methicillin-resistant Staph aureus only with the negative anaerobic cultures. She was treated with vancomycin after initial treatment with Unasyn and discharged to home on 10/14/2016 with oral clindamycin for seven days. She said she continued to have pain that grew steadily worse once clindamycin ended, so she came back and was admitted last night. She had no fevers or chills. No malaise or flu-like symptoms. Her temperature was normal. White blood cell count also was normal. A CT scan was repeated last evening of that area and it showed evidence of cellulitis in the mental region in the left mandible, but no discrete abscess. She has been restarted on vancomycin. PAST MEDICAL HISTORY: Otherwise unremarkable except that she did have a boil in her left upper inner thigh that grew methicillin-resistant Staph aureus also during the last hospitalization, but that has now resolved. She is on vancomycin alone at present. ALLERGIES: SHE REPORTS ALLERGIES TO SULFA, WHICH CAUSES A RASH. ERYTHROMYCIN AND CLARITHROMYCIN WHICH CAUSES GI UPSET. SOCIAL HISTORY: She previously was living with family members. She is . Nonsmoker. No history of alcohol or substance abuse. FAMILY HISTORY: Noncontributory. PHYSICAL EXAMINATION: GENERAL: A nontoxic adult female, in no acute distress. She is alert and oriented x3. Consultation Report [place] [facility] [address] [facility] [place]. [address] NAME: LEON RANDHAWA : 56 STATUS : ADM Radha PAT#: [id number] AGE: 56 ADM/REG DATE : 10/26/16 MR#: [id number] REPORT SERV DATE: 10/27/16 DICTATED BY: JACQUELINE EDGAR DATE: 10/27/16 REPORT STATUS : Draft TRANSCRIBED BY: MARGO DATE: 10/27/16 VITAL SIGNS: Her temperature here is 98, pulse 83, respirations 18, blood pressure 133/63, and weight 90 kg. HEENT: Her sclerae are clear. She has a swelling induration along the left lower jaw line, but no warmth or redness on the outside, and her incision from the past procedures are well healed. No fluctuance is palpated. No drainage within the mouth. No signs of erythema or irritation along the gum line on the inside. NECK: Supple without lymphadenopathy. LUNGS: Clear. HEART: Regular rate and rhythm. ABDOMEN: Soft, nontender. Positive bowel sounds. No boils or lesions or rashes seen anywhere else on her body. LABORATORY DATA: White blood cell count 6.9, hematocrit 34.7, platelets 304. BUN and creatinine 6 and 0.61. IMPRESSION: Persistent cellulitis, but no signs of an abscess and feel all due to Methicillin-resistant Staph aureus alone. RECOMMENDATIONS: 1. I do not think surgical procedures is needed at present. 2. I agree with vancomycin. 3. I think she probably just needs two to three week treatment course with IV vancomycin. Unfortunately, she is on psychiatric medications that were preclude the use of Zyvox. Finally, I will follow the patient with you. I appreciate very much your consulting on this patient. RM Jacqueline Edgar M.D. / [id number] CC: Sumanth Moreira II, MD
--- NOTE | ~2016-10-26 | DS ---
Discharge Summary [address] [place]. [address] NAME: LEON RANDHAWA : 56 STATUS : DIS IN PAT#: [id number] AGE: 56 ADM/REG DATE : 10/26/16 MR#: [id number] REPORT SERV DATE: 11/06/16 DICTATED BY: JAIME GOMES DATE: 11/05/16 REPORT STATUS : Draft TRANSCRIBED BY: MODL DATE: 11/05/16 ADMISSION DATE: 10/26/2016 DISCHARGE DATE: 11/05/2016 DISCHARGE DIAGNOSES: 1. Persistent left orofacial methicillin-resistant Staphylococcus aureus cellulitis. Mental and left buccal space abscess, status post incision and drainage on 10/07/2016. Left security rover space abscess, status post incision and drainage on 10/12/2016. 2. Type 2 diabetes mellitus with hyperglycemia. 3. 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 4. Possible medication side effect including weakness and fatigue with gabapentin. 5. Left arm numbness, currently resolved. 6. Hypothyroidism. 7. Recent facial zoster, currently resolved. 8. Schizophrenia, off treatment. 9. Depression. 10.Insomnia. 11.Fibromyalgia. 12.Peripheral neuropathy. 13.Chronic pain with acute exacerbation due to present illness. 14.Opioid induced constipation, now resolved. 15.Rheumatoid arthritis, on immunosuppressive therapy. 16.Hyperlipoproteinemia. OPEATIONS AND PROCEDURES DURING THIS HOSPITALIZATION: None. CONSULTANTS DURING THIS HOSPITALIZATION: Dr. Carlos Noriega of Infectious Disease, Dr. Jose E Padilla of Oral Surgery. BRIEF HPI: The patient is a 56-year-old female, triaged in the emergency room on 10/26/2016 at 1716 hours complaining of swelling in her jaw and throat. After evaluation in the emergency room, she was referred to the Hospitalist Service for treatment. Please refer to history and physical exam dictated by Dr. Scott Rosas on the day of admission. HOSPITAL COURSE: After being admitted to the hospital, this patient was cared for by Dr. Germán Leon. Please refer to Dr. Leon's interim summary dictated on 11/01/2016. I took over this patient's care on 11/03/2016. This patient was doing relatively well. She still had complaints about swelling on her face, but this too was due to chronic scar tissue and some scars pulling the softer out side tissue. I discussed her care with Dr. Noriega, and we decided that she would need at least two to three weeks of total IV antibiotic therapy. This patient had no other resources that antibiotics as well as home health care was charitied through Hospital's Case Management Department. She has continued to do well. All other labs and parameters have remained stable. Her hemoglobin is slightly low, this is due to her chronic anemia and underlying medical issues. Her hemoglobin on the day of discharge was 9.7. She continues to otherwise remain medically stable. She is being discharged in Discharge Summary [address] [facility] [place]. [address] NAME: LEON RANDHAWA : 56 STATUS : DIS IN PAT#: [id number] AGE: 56 ADM/REG DATE : 10/26/16 MR#: [id number] REPORT SERV DATE: 11/06/16 DICTATED BY: JAIME GOMES DATE: 11/05/16 REPORT STATUS : Draft TRANSCRIBED BY: MARGO DATE: 11/05/16 the home setting with IV antibiotics. DISCHARGE DISPOSITION: Home. DISCHARGE ACTIVITY: As tolerated. DISCHARGE DIET: GI soft diet. DISCHARGE MEDICATIONS: Acyclovir 800 mg once at bedtime for maintenance therapy, Cymbalta 90 mg once daily, Vytorin 10/80 one tablet p.o. every day, folic acid 1 mg every day, gabapentin 200 mg three times daily, NovoLog sliding scale, Levemir 35 units subcu daily, Synthroid 50 mcg once daily, methotrexate 12.5 mg once every seven days, Lopressor 50 mg twice daily, Nystatin powder to the affected areas of fungal dermatitis and skin folds, Nexium 40 mg once at bedtime, Lyrica 150 mg three times daily, MiraLAX one packet with eight ounces of water over the counter daily, Zanaflex 4 mg p.o. at bedtime and 4 mg twice daily p.r.n. for muscle tension, trazodone 100 mg once at bedtime; Coumadin 2 mg Wednesday, Wednesday, Wednesday and 3 mg all other days; IV vancomycin, to be completed under the care of Dr. Noriega in the outpatient setting; hydrocodone 5/325 one tablet four times daily; hydroxyzine 50 mg p.o. three times daily p.r.n., metformin 500 mg p.o. twice daily, oxycodone 10/325 one tablet every eight hours p.r.n. for severe pain; oyster shell calcium 1000 mg p.o. once every morning, Bepreve 1.5% ophthalmic solutions as directed. DISCHARGE FOLLOWUP: With Dr. Carlos Noriega in the outpatient setting and with primary care physician in one to two weeks. More than 35 minutes spent planning this patient's discharge, reconciling medications, writing prescriptions, discussing hospital care, and followup with the patient and documenting this discharge. THERESE/MARGO Jaime Gomes M.D. / [id number] CC: Jaime Gomes M.D.
--- NOTE | ~2016-10-26 | IDS ---
Interim Discharge Summary [facility] [address] [place]. [address] NAME: LEON RANDHAWA : 56 STATUS : ADM Radha PAT#: [id number] AGE: 56 ADM/REG DATE : 10/26/16 MR#: [id number] REPORT SERV DATE: 11/01/16 DICTATED BY: YOSEF LEON DATE: 11/01/16 REPORT STATUS : Draft TRANSCRIBED BY: MODL DATE: 11/01/16 ADMISSION DATE: 10/26/2016 DISCHARGE DATE: DATE OF INTERIM SUMMARY: 11/01/2016 CURRENT DIAGNOSES: 1. Persistent left orofacial methicillin-resistant Staphylococcus aureus cellulitis. 2. Mental and left buccal space abscess, status post incision and drainage, 10/07/2016. 3. Left health and safety manager space abscess, status post incision and drainage, 10/12/2016. 4. Type 2 diabetes with hyperglycemia. 5. History of protein S deficiency with recurrent venous thromboembolic disease, on chronic Coumadin anticoagulation. 6. Possible medication side effect including weakness and fatigue, with gabapentin, in conjunction with pregabalin, improving with reduction in gabapentin dosing. 7. Left arm numbness, improving, negative brain MRI for acute stroke. 8. Hypothyroid, on replacement. 9. Recent facial zoster. 10.Schizophrenia, off treatment. 11.Depression. 12.Insomnia. 13.Fibromyalgia. 14.Neuropathy. 15.Chronic pain with acute exacerbation with present illness. 16.Opioid-induced constipation. 17.Rheumatoid arthritis, on immunosuppressive therapy with methotrexate. 18.Hyperlipoproteinemia. OPERATIONS AND PROCEDURES: None. PRESENT ILLNESS: This is a 56-year-old white female, who was triaged in the emergency room on 10/26/2016 at 1716 hours, complaining of swelling in her jaw and throat. After evaluation in the emergency room, she was referred to the Hospitalist Service for admission. She was seen by Dr. Scott Rosas and admitted as described on admission history and physical examination. Additional history was that she had all of her teeth pulled in the fall of 2015. She complained of irritation in her mouth since that time. She was admitted to this hospital, 10/06/2016 to 10/14/2016 with an odontogenic infection and had the above-mentioned procedures performed. Surprisingly, cultures were positive for MRSA. She was initially treated with Unasyn and then with vancomycin. At the time of discharge, she was placed on oral clindamycin for seven days. She improved, but her symptoms returned once clindamycin was discontinued and she came to the emergency room for evaluation. ADDITIONAL HISTORY: Per Dr. Rosas. Interim Discharge Summary [address] [place]. [address] NAME: LEON RANDHAWA : 56 STATUS : ADM Radha PAT#: [id number] AGE: 56 ADM/REG DATE : 10/26/16 MR#: [id number] REPORT SERV DATE: 11/01/16 DICTATED BY: YOSEF LEON DATE: 11/01/16 REPORT STATUS : Draft TRANSCRIBED BY: MODMiguel DATE: 11/01/16 PHYSICAL EXAMINATION: Per Dr. Rosas. ADMISSION LABORATORY: Per Dr. Rosas. She was admitted with recurrent MRSA cellulitis. She was placed on vancomycin. ID consultation was obtained and she was seen by Dr. Carlos Noriega. Her hospital care was assumed by the undersigned. Dr. Noriega did not think any surgical procedures were needed. He concurred with vancomycin. He thought she needed a two- to three-week treatment course of IV vancomycin. He thought her psychiatric medication list precluded the use of Zyvox. Oral Surgery consultation was obtained to see if there were any other considerations to speed her recovery. They did not feel that further surgical intervention was needed. She was not thought to have had osteomyelitis initially. During this interim, she has continued to have left lower jaw pain, swelling, tenderness, and numbness. Clinically, it has been hard to see any improvement. On 10/28/2016, she complained of left arm and hand numbness. She thought her left face was more numb and that her speech was slurred and that she was drooling. It was unclear after clinical evaluation whether she might be having an acute stroke. Brain MR imaging was done and was negative. Subsequently, her symptoms have slowly improved, but not totally resolved. She has a left greater than right lower extremity edema. This progressed on 11/01/2016 associated with increasing pain. There was no evidence for cellulitis. Her INR was therapeutic at 2.4, but given her recurrent VTE history, venous ultrasound imaging was done of both lower extremities, and there was no acute deep vein thrombosis in the left lower extremity, but there was thought to be a small peripheral nonobstructing chronic appearing short segment of thrombus in the common femoral vein. No right lower extremity thrombus was seen. Attempts to improve her blood sugar control had been made with escalation of insulin doses on a daily basis. Her pain is being managed with p.r.n. IV Dilaudid and p.o. oxycodone with some improvement. She developed some opioid-induced constipation which has been addressed. Her Coumadin anticoagulation has been continued with a therapeutic INR without evident mucosal bleeding. When seen one day with her daughter, concerns were expressed regarding some general fatigue, weakness, and perhaps some foggy thinking. On medication review with her and her daughter, it was decided to slowly deescalate her gabapentin doses. She has been reduced from 800 q.8 Interim Discharge Summary [address] [place]. [address] NAME: LEON RANDHAWA : 56 STATUS : ADM Radha PAT#: [id number] AGE: 56 ADM/REG DATE : 10/26/16 MR#: [id number] REPORT SERV DATE: 11/01/16 DICTATED BY: YOSEF LEON DATE: 11/01/16 REPORT STATUS : Draft TRANSCRIBED BY: MODL DATE: 11/01/16 hours to 400 q.8 hours with improvement of the above-mentioned symptoms. DISPOSITION PLANNING: Pending with Case Management and ID, as she is currently self-pay. DD/MODL Yosef Leon M.D. / [id number] CC: Yosef Leon M.D.
[~2016-10-26 21:08] MED LIST changes: +ATARAX50B PO; +BEPREVE OPH; +C2 PO; +CALCIUM PO; +CLEOCIN300 MG PO; +COUMADIN3 MG PO; +CYMBALTA30 PO; +LOP50 PO; +LYRICA150 MG PO; +MOBIC15 MG PO; +MTX2.5 PO; +NEUR800 PO; +NORCO1 TA1 PO; +PERCOCET 10/3251 TAB PO; +TRAZ100 PO; +ZOVI800 PO
[2016-10-26 21:52] LABS: BASOPHILS 0.9 %; BASOPHILS ABSOLUTE 0.06 10/3/uL (0.0-0.16); EOSINOPHILS 2.9 %; EOSINOPHILS ABSOLUTE 0.19 10/3/uL (0.0-0.53); ER CBC TAT 0 Hrs 15 Mins; IMMATURE GRANULOCYTES 0.2 %; IMMATURE GRANULOCYTES ABSOLUTE 0.01 10/3/uL (0.0-0.11); LYMPHOCYTES 40.5 %; LYMPHOCYTES ABSOLUTE 2.69 10/3/uL (0.67-4.30); MEAN CORPUS HGB CONC 32.5 g/dL (32.0-36.0); MEAN CORPUSCULAR HEMOGLOB 29.3 pg (26.0-34.0); MEAN PLATELET VOLUME 8.7 fL (9.2-13.0); MONOCYTES 6.9 %; MONOCYTES ABSOLUTE 0.46 10/3/uL (0.21-1.20); NEUTROPHILS 48.6 %; NEUTROPHILS ABSOLUTE 3.23 10/3/uL (2.02-8.40); WHITE BLOOD CELLS 6.6 10/3/uL (4.5-10.5)
[2016-10-26 21:53] LABS: HEMATOCRIT 38.5 % (36.0-48.0); HEMOGLOBIN 12.5 g/dL (12.0-16.0); MANUAL DIFF NO %; MEAN CORPUSCULAR VOLUME 90.4 fL (80-100); PLATELET COUNT 364 10/3/uL (150-400); RED CELL COUNT 4.26 10/6/uL (4.0-5.6)
[2016-10-26 22:05] LABS: ALKALINE PHOSPHATASE 85 U/L (45-117); BUN (BLOOD UREA NITROGEN) 6 MG/DL (6-23); CALCIUM, SERUM 9.2 MG/DL (8.5-10.4); CHLORIDE, SERUM 101 MMOL/L (96-112); CO2 (CARBON DIOXIDE) 27 MMOL/L (24-34); CREATININE 0.62 MG/DL (0.55-1.02); GFR AFRICAN AMERICAN 115 ML/MIN (>=60); GFR NON AFRICAN AMERICAN 99 ML/MIN (>=60); GLOBULIN 3.9 G/DL (2.5-4.1); POTASSIUM, SERUM 3.9 MMOL/L (3.5-5.3); SGOT(AST) 16 U/L (5-40); SGPT(ALT) 18 U/L (5-65); SODIUM, SERUM 139 MMOL/L (135-148); TOTAL BILIRUBIN 0.2 MG/DL (0-1.2); TOTAL PROTEIN 7.8 G/DL (6.0-8.5)
[2016-10-26 22:07] LABS: ALBUMIN 3.9 G/DL (3.5-5.0); GLUCOSE, SERUM 142 MG/DL (60-99)
[2016-10-27] MEDS ORDERED: ZOVI800 PO (01:14)
[2016-10-27] MEDS ORDERED: CYMBALTA30 PO (01:15)
[2016-10-27] MEDS ORDERED: VYTORIN 10/80 T1 TAB PO (01:15)
[2016-10-27] MEDS ORDERED: CYMBALTA60 PO (01:15)
[2016-10-27] MEDS ORDERED: NEXIUM40 PO (01:15)
[2016-10-27] MEDS ORDERED: NEUR800 PO (01:16)
[2016-10-27] MEDS ORDERED: FOLIC PO (01:16)
[2016-10-27] MEDS ORDERED: NORCO1 TA1 PO (01:17)
[2016-10-27] MEDS ORDERED: ATARAX50B PO (01:17)
[2016-10-27] MEDS ORDERED: NOVOLOG SC (01:18)
[2016-10-27] MEDS ORDERED: SYN.05 PO (01:19)
[2016-10-27] MEDS ORDERED: LEVEMIR SC (01:19)
[2016-10-27] MEDS ORDERED: MOBIC15 MG PO (01:19)
[2016-10-27] MEDS ORDERED: GLUCPH PO (01:20)
[2016-10-27] MEDS ORDERED: MTX2.5 PO (01:20)
[2016-10-27] MEDS ORDERED: LOP25 PO (01:20)
[2016-10-27] MEDS ORDERED: PERCOCET 10/3251 TAB PO (01:21)
[2016-10-27] MEDS ORDERED: LYRICA150 MG PO (01:21)
[2016-10-27] MEDS ORDERED: TRAZ100 PO (01:23)
[2016-10-27] MEDS ORDERED: ZANAFLEX 4 MG TA4 MG PO ×2 (01:23)
[2016-10-27] MEDS ORDERED: OYST-CAL500 MG PO (01:24)
[2016-10-27] MEDS ORDERED: BEPOTASTINE OPH (01:25)
[2016-10-27] MEDS ORDERED: COUMADIN3 MG PO (01:26)
[2016-10-27] MEDS ORDERED: C2 PO (01:26)
[2016-10-27 08:28] LABS: BASOPHILS 0.7 %; BASOPHILS ABSOLUTE 0.05 10/3/uL (0.0-0.16); EOSINOPHILS 3.9 %; EOSINOPHILS ABSOLUTE 0.27 10/3/uL (0.0-0.53); HEMATOCRIT 34.7 % (36.0-48.0); HEMOGLOBIN 11.5 g/dL (12.0-16.0); IMMATURE GRANULOCYTES 0.1 %; IMMATURE GRANULOCYTES ABSOLUTE 0.01 10/3/uL (0.0-0.11); LYMPHOCYTES 38.2 %; LYMPHOCYTES ABSOLUTE 2.62 10/3/uL (0.67-4.30); MANUAL DIFF NO %; MEAN CORPUS HGB CONC 33.1 g/dL (32.0-36.0); MEAN CORPUSCULAR HEMOGLOB 29.6 pg (26.0-34.0); MEAN CORPUSCULAR VOLUME 89.4 fL (80-100); MEAN PLATELET VOLUME 8.6 fL (9.2-13.0); MONOCYTES 8.3 %; MONOCYTES ABSOLUTE 0.57 10/3/uL (0.21-1.20); NEUTROPHILS 48.8 %; NEUTROPHILS ABSOLUTE 3.33 10/3/uL (2.02-8.40); PLATELET COUNT 304 10/3/uL (150-400); RBC DISTRIBUTION WIDTH 16.2 % (12.0-16.0); RED CELL COUNT 3.88 10/6/uL (4.0-5.6); WHITE BLOOD CELLS 6.9 10/3/uL (4.5-10.5)
[2016-10-27 08:41] LABS: BUN (BLOOD UREA NITROGEN) 6 MG/DL (6-23); CALCIUM, SERUM 8.9 MG/DL (8.5-10.4); CHLORIDE, SERUM 107 MMOL/L (96-112); CO2 (CARBON DIOXIDE) 26 MMOL/L (24-34); CREATININE 0.61 MG/DL (0.55-1.02); GFR AFRICAN AMERICAN 116 ML/MIN (>=60); GFR NON AFRICAN AMERICAN 100 ML/MIN (>=60); GLUCOSE, SERUM 160 MG/DL (60-99); POTASSIUM, SERUM 3.6 MMOL/L (3.5-5.3); SODIUM, SERUM 141 MMOL/L (135-148)
[2016-10-27 08:42] LABS: PARTIAL THROMBO TIME 33.3 SEC (22.5-37.2); PROTIME (NOT ORD) 22.6 SEC (12.0-14.5)
[2016-10-28 06:24] LABS: BASOPHILS 1.3 %; BASOPHILS ABSOLUTE 0.06 10/3/uL (0.0-0.16); EOSINOPHILS 7.4 %; EOSINOPHILS ABSOLUTE 0.34 10/3/uL (0.0-0.53); HEMOGLOBIN 10.5 g/dL (12.0-16.0); IMMATURE GRANULOCYTES 0.2 %; IMMATURE GRANULOCYTES ABSOLUTE 0.01 10/3/uL (0.0-0.11); LYMPHOCYTES 44.2 %; LYMPHOCYTES ABSOLUTE 2.02 10/3/uL (0.67-4.30); MEAN CORPUS HGB CONC 31.8 g/dL (32.0-36.0); MEAN CORPUSCULAR HEMOGLOB 29.5 pg (26.0-34.0); MEAN PLATELET VOLUME 8.6 fL (9.2-13.0); MONOCYTES 9.2 %; MONOCYTES ABSOLUTE 0.42 10/3/uL (0.21-1.20); NEUTROPHILS 37.7 %; NEUTROPHILS ABSOLUTE 1.72 10/3/uL (2.02-8.40); PLATELET COUNT 265 10/3/uL (150-400); RBC DISTRIBUTION WIDTH 16.3 % (12.0-16.0); RED CELL COUNT 3.56 10/6/uL (4.0-5.6); WHITE BLOOD CELLS 4.6 10/3/uL (4.5-10.5)
[2016-10-28 06:25] LABS: MANUAL DIFF NO %; MEAN CORPUSCULAR VOLUME 92.7 fL (80-100)
[2016-10-28 06:30] LABS: INTERNATIONAL NORMAL RATI 2.2 UNITS (-); PROTIME (NOT ORD) 23.9 SEC (12.0-14.5)
[2016-10-28 06:45] LABS: BUN (BLOOD UREA NITROGEN) 6 MG/DL (6-23); CALCIUM, SERUM 8.6 MG/DL (8.5-10.4); CHLORIDE, SERUM 108 MMOL/L (96-112); CO2 (CARBON DIOXIDE) 27 MMOL/L (24-34); CREATININE 0.64 MG/DL (0.55-1.02); GFR AFRICAN AMERICAN 114 ML/MIN (>=60); GFR NON AFRICAN AMERICAN 98 ML/MIN (>=60); GLUCOSE, SERUM 183 MG/DL (60-99); SODIUM, SERUM 142 MMOL/L (135-148)
[2016-10-29 05:00] LABS: BASOPHILS 0.7 %; BASOPHILS ABSOLUTE 0.03 10/3/uL (0.0-0.16); EOSINOPHILS 7.2 %; EOSINOPHILS ABSOLUTE 0.29 10/3/uL (0.0-0.53); HEMATOCRIT 32.9 % (36.0-48.0); HEMOGLOBIN 10.5 g/dL (12.0-16.0); IMMATURE GRANULOCYTES 0.2 %; IMMATURE GRANULOCYTES ABSOLUTE 0.01 10/3/uL (0.0-0.11); LYMPHOCYTES 54.8 %; LYMPHOCYTES ABSOLUTE 2.22 10/3/uL (0.67-4.30); MEAN CORPUS HGB CONC 31.9 g/dL (32.0-36.0); MEAN CORPUSCULAR HEMOGLOB 29.8 pg (26.0-34.0); MEAN CORPUSCULAR VOLUME 93.5 fL (80-100); MEAN PLATELET VOLUME 8.6 fL (9.2-13.0); MONOCYTES 7.7 %; MONOCYTES ABSOLUTE 0.31 10/3/uL (0.21-1.20); NEUTROPHILS 29.4 %; NEUTROPHILS ABSOLUTE 1.19 10/3/uL (2.02-8.40); PLATELET COUNT 264 10/3/uL (150-400); RBC DISTRIBUTION WIDTH 16.1 % (12.0-16.0); RED CELL COUNT 3.52 10/6/uL (4.0-5.6); WHITE BLOOD CELLS 4.1 10/3/uL (4.5-10.5)
[2016-10-29 05:05] LABS: MANUAL DIFF NO %
[2016-10-29 05:06] LABS: BUN (BLOOD UREA NITROGEN) 8 MG/DL (6-23); CALCIUM, SERUM 8.7 MG/DL (8.5-10.4); CHLORIDE, SERUM 106 MMOL/L (96-112); CO2 (CARBON DIOXIDE) 26 MMOL/L (24-34); CREATININE 0.62 MG/DL (0.55-1.02); GFR AFRICAN AMERICAN 115 ML/MIN (>=60); GFR NON AFRICAN AMERICAN 99 ML/MIN (>=60); GLUCOSE, SERUM 182 MG/DL (60-99); POTASSIUM, SERUM 4.1 MMOL/L (3.5-5.3); SODIUM, SERUM 141 MMOL/L (135-148)
[2016-10-29 05:08] LABS: INTERNATIONAL NORMAL RATI 2.4 UNITS (-); PROTIME (NOT ORD) 25.6 SEC (12.0-14.5)
[2016-10-30 07:54] LABS: BASOPHILS 0.7 %; BASOPHILS ABSOLUTE 0.03 10/3/uL (0.0-0.16); EOSINOPHILS 6.1 %; EOSINOPHILS ABSOLUTE 0.26 10/3/uL (0.0-0.53); HEMATOCRIT 33.3 % (36.0-48.0); HEMOGLOBIN 10.7 g/dL (12.0-16.0); IMMATURE GRANULOCYTES 0.2 %; IMMATURE GRANULOCYTES ABSOLUTE 0.01 10/3/uL (0.0-0.11); LYMPHOCYTES 50.9 %; LYMPHOCYTES ABSOLUTE 2.17 10/3/uL (0.67-4.30); MEAN CORPUS HGB CONC 32.1 g/dL (32.0-36.0); MEAN CORPUSCULAR HEMOGLOB 29.4 pg (26.0-34.0); MEAN CORPUSCULAR VOLUME 91.5 fL (80-100); MEAN PLATELET VOLUME 8.8 fL (9.2-13.0); MONOCYTES ABSOLUTE 0.34 10/3/uL (0.21-1.20); NEUTROPHILS 34.1 %; NEUTROPHILS ABSOLUTE 1.45 10/3/uL (2.02-8.40); PLATELET COUNT 235 10/3/uL (150-400); RBC DISTRIBUTION WIDTH 16.1 % (12.0-16.0); RED CELL COUNT 3.64 10/6/uL (4.0-5.6); WHITE BLOOD CELLS 4.3 10/3/uL (4.5-10.5)
[2016-10-30 07:55] LABS: MANUAL DIFF NO %
[2016-10-30 08:01] LABS: INTERNATIONAL NORMAL RATI 2.3 UNITS (-); PROTIME (NOT ORD) 24.7 SEC (12.0-14.5)
[2016-10-30 08:09] LABS: BUN (BLOOD UREA NITROGEN) 8 MG/DL (6-23); CALCIUM, SERUM 8.9 MG/DL (8.5-10.4); CHLORIDE, SERUM 107 MMOL/L (96-112); CO2 (CARBON DIOXIDE) 27 MMOL/L (24-34); CREATININE 0.61 MG/DL (0.55-1.02); GFR AFRICAN AMERICAN 116 ML/MIN (>=60); GFR NON AFRICAN AMERICAN 100 ML/MIN (>=60); GLUCOSE, SERUM 170 MG/DL (60-99); POTASSIUM, SERUM 4.1 MMOL/L (3.5-5.3); SODIUM, SERUM 142 MMOL/L (135-148)
[2016-10-31 04:57] LABS: BASOPHILS 0.6 %; BASOPHILS ABSOLUTE 0.03 10/3/uL (0.0-0.16); EOSINOPHILS 3.9 %; EOSINOPHILS ABSOLUTE 0.21 10/3/uL (0.0-0.53); HEMATOCRIT 35.1 % (36.0-48.0); LYMPHOCYTES 42.3 %; LYMPHOCYTES ABSOLUTE 2.29 10/3/uL (0.67-4.30); MEAN CORPUS HGB CONC 31.3 g/dL (32.0-36.0); MEAN CORPUSCULAR VOLUME 92.6 fL (80-100); MONOCYTES 5.9 %; MONOCYTES ABSOLUTE 0.32 10/3/uL (0.21-1.20); NEUTROPHILS 47.3 %; NEUTROPHILS ABSOLUTE 2.56 10/3/uL (2.02-8.40); PLATELET COUNT 235 10/3/uL (150-400); RBC DISTRIBUTION WIDTH 16.1 % (12.0-16.0); RED CELL COUNT 3.79 10/6/uL (4.0-5.6); WHITE BLOOD CELLS 5.4 10/3/uL (4.5-10.5)
[2016-10-31 04:59] LABS: MANUAL DIFF NO %
[2016-10-31 05:00] LABS: INTERNATIONAL NORMAL RATI 2.4 UNITS (-); PROTIME (NOT ORD) 25.9 SEC (12.0-14.5)
[2016-10-31 05:12] LABS: BUN (BLOOD UREA NITROGEN) 9 MG/DL (6-23); CALCIUM, SERUM 8.8 MG/DL (8.5-10.4); CHLORIDE, SERUM 105 MMOL/L (96-112); CO2 (CARBON DIOXIDE) 28 MMOL/L (24-34); CREATININE 0.61 MG/DL (0.55-1.02); GFR AFRICAN AMERICAN 116 ML/MIN (>=60); GFR NON AFRICAN AMERICAN 100 ML/MIN (>=60); GLUCOSE, SERUM 192 MG/DL (60-99); POTASSIUM, SERUM 4.1 MMOL/L (3.5-5.3); SODIUM, SERUM 142 MMOL/L (135-148)
[2016-11-01 07:20] LABS: BASOPHILS 0.4 %; BASOPHILS ABSOLUTE 0.03 10/3/uL (0.0-0.16); EOSINOPHILS 2.6 %; EOSINOPHILS ABSOLUTE 0.18 10/3/uL (0.0-0.53); HEMATOCRIT 32.5 % (36.0-48.0); HEMOGLOBIN 10.6 g/dL (12.0-16.0); IMMATURE GRANULOCYTES 0.1 %; IMMATURE GRANULOCYTES ABSOLUTE 0.01 10/3/uL (0.0-0.11); LYMPHOCYTES ABSOLUTE 1.38 10/3/uL (0.67-4.30); MEAN CORPUS HGB CONC 32.6 g/dL (32.0-36.0); MEAN CORPUSCULAR HEMOGLOB 29.6 pg (26.0-34.0); MEAN CORPUSCULAR VOLUME 90.8 fL (80-100); MEAN PLATELET VOLUME 8.8 fL (9.2-13.0); MONOCYTES 9.8 %; MONOCYTES ABSOLUTE 0.68 10/3/uL (0.21-1.20); NEUTROPHILS 67.1 %; NEUTROPHILS ABSOLUTE 4.63 10/3/uL (2.02-8.40); PLATELET COUNT 211 10/3/uL (150-400); RED CELL COUNT 3.58 10/6/uL (4.0-5.6); WHITE BLOOD CELLS 6.9 10/3/uL (4.5-10.5)
[2016-11-01 07:23] LABS: MANUAL DIFF NO %
[2016-11-01 07:29] LABS: INTERNATIONAL NORMAL RATI 2.2 UNITS (-); PROTIME (NOT ORD) 23.8 SEC (12.0-14.5)
[2016-11-01 07:31] LABS: BUN (BLOOD UREA NITROGEN) 8 MG/DL (6-23); CALCIUM, SERUM 8.5 MG/DL (8.5-10.4); CHLORIDE, SERUM 101 MMOL/L (96-112); CO2 (CARBON DIOXIDE) 26 MMOL/L (24-34); CREATININE 0.49 MG/DL (0.55-1.02); GFR AFRICAN AMERICAN 124 ML/MIN (>=60); GFR NON AFRICAN AMERICAN 107 ML/MIN (>=60); GLUCOSE, SERUM 183 MG/DL (60-99); SODIUM, SERUM 139 MMOL/L (135-148)
[2016-11-02 08:42] LABS: BASOPHILS 0.5 %; BASOPHILS ABSOLUTE 0.03 10/3/uL (0.0-0.16); EOSINOPHILS 2.7 %; EOSINOPHILS ABSOLUTE 0.15 10/3/uL (0.0-0.53); HEMOGLOBIN 9.6 g/dL (12.0-16.0); IMMATURE GRANULOCYTES 0.2 %; IMMATURE GRANULOCYTES ABSOLUTE 0.01 10/3/uL (0.0-0.11); LYMPHOCYTES 39.9 %; LYMPHOCYTES ABSOLUTE 2.24 10/3/uL (0.67-4.30); MEAN CORPUSCULAR HEMOGLOB 29.7 pg (26.0-34.0); MEAN CORPUSCULAR VOLUME 92.9 fL (80-100); MEAN PLATELET VOLUME 8.8 fL (9.2-13.0); MONOCYTES 8.5 %; MONOCYTES ABSOLUTE 0.48 10/3/uL (0.21-1.20); NEUTROPHILS 48.2 %; NEUTROPHILS ABSOLUTE 2.71 10/3/uL (2.02-8.40); PLATELET COUNT 206 10/3/uL (150-400); RBC DISTRIBUTION WIDTH 15.7 % (12.0-16.0); RED CELL COUNT 3.23 10/6/uL (4.0-5.6); WHITE BLOOD CELLS 5.6 10/3/uL (4.5-10.5)
[2016-11-02 08:49] LABS: PROTIME (NOT ORD) 22.2 SEC (12.0-14.5)
[2016-11-02 08:53] LABS: BUN (BLOOD UREA NITROGEN) 7 MG/DL (6-23); CALCIUM, SERUM 8.7 MG/DL (8.5-10.4); CHLORIDE, SERUM 103 MMOL/L (96-112); CREATININE 0.49 MG/DL (0.55-1.02); GFR AFRICAN AMERICAN 124 ML/MIN (>=60); GFR NON AFRICAN AMERICAN 107 ML/MIN (>=60); POTASSIUM, SERUM 3.6 MMOL/L (3.5-5.3); SODIUM, SERUM 141 MMOL/L (135-148)
[2016-11-02 08:54] LABS: CO2 (CARBON DIOXIDE) 31 MMOL/L (24-34); GLUCOSE, SERUM 146 MG/DL (60-99)
[2016-11-02 13:46] LABS: ASCORBIC ACID (UR NOT ORDER) NEG (NEG); BILIRUBIN, URINE NEGATIVE (NEG); KETONE, URINE NEGATIVE (NEG); LEUKOCYTE ESTERASE(NOT OR NEG (NEG); WBC (NOT ORDERED) (RFLEX) < 1 (0-5)
[2016-11-03 05:14] LABS: BASOPHILS 0.6 %; BASOPHILS ABSOLUTE 0.03 10/3/uL (0.0-0.16); EOSINOPHILS 4.2 %; HEMATOCRIT 28.8 % (36.0-48.0); HEMOGLOBIN 9.3 g/dL (12.0-16.0); IMMATURE GRANULOCYTES 0.2 %; IMMATURE GRANULOCYTES ABSOLUTE 0.01 10/3/uL (0.0-0.11); LYMPHOCYTES 34.2 %; LYMPHOCYTES ABSOLUTE 1.63 10/3/uL (0.67-4.30); MEAN CORPUS HGB CONC 32.3 g/dL (32.0-36.0); MEAN CORPUSCULAR VOLUME 92.9 fL (80-100); MONOCYTES 8.6 %; MONOCYTES ABSOLUTE 0.41 10/3/uL (0.21-1.20); NEUTROPHILS 52.2 %; NEUTROPHILS ABSOLUTE 2.49 10/3/uL (2.02-8.40); PLATELET COUNT 187 10/3/uL (150-400); WHITE BLOOD CELLS 4.8 10/3/uL (4.5-10.5)
[2016-11-03 05:15] LABS: MANUAL DIFF NO %
[2016-11-03 05:21] LABS: INTERNATIONAL NORMAL RATI 2.2 UNITS (-)
[2016-11-03 05:32] LABS: BUN (BLOOD UREA NITROGEN) 8 MG/DL (6-23); CALCIUM, SERUM 8.6 MG/DL (8.5-10.4); CHLORIDE, SERUM 105 MMOL/L (96-112); CREATININE 0.53 MG/DL (0.55-1.02); GFR AFRICAN AMERICAN 121 ML/MIN (>=60); GFR NON AFRICAN AMERICAN 105 ML/MIN (>=60); POTASSIUM, SERUM 3.9 MMOL/L (3.5-5.3); SODIUM, SERUM 140 MMOL/L (135-148)
[2016-11-03 05:33] LABS: CO2 (CARBON DIOXIDE) 26 MMOL/L (24-34); GLUCOSE, SERUM 280 MG/DL (60-99)
[2016-11-04 06:35] LABS: INTERNATIONAL NORMAL RATI 2.3 UNITS (-); PROTIME (NOT ORD) 25.2 SEC (12.0-14.5)
[2016-11-04 06:36] LABS: BASOPHILS 0.7 %; BASOPHILS ABSOLUTE 0.03 10/3/uL (0.0-0.16); EOSINOPHILS 6.5 %; EOSINOPHILS ABSOLUTE 0.29 10/3/uL (0.0-0.53); HEMATOCRIT 30.2 % (36.0-48.0); HEMOGLOBIN 9.7 g/dL (12.0-16.0); IMMATURE GRANULOCYTES 0.2 %; IMMATURE GRANULOCYTES ABSOLUTE 0.01 10/3/uL (0.0-0.11); LYMPHOCYTES 44.9 %; LYMPHOCYTES ABSOLUTE 1.99 10/3/uL (0.67-4.30); MEAN CORPUS HGB CONC 32.1 g/dL (32.0-36.0); MEAN CORPUSCULAR HEMOGLOB 29.5 pg (26.0-34.0); MEAN CORPUSCULAR VOLUME 91.8 fL (80-100); MEAN PLATELET VOLUME 9.1 fL (9.2-13.0); MONOCYTES 8.6 %; MONOCYTES ABSOLUTE 0.38 10/3/uL (0.21-1.20); NEUTROPHILS 39.1 %; NEUTROPHILS ABSOLUTE 1.73 10/3/uL (2.02-8.40); PLATELET COUNT 174 10/3/uL (150-400); RBC DISTRIBUTION WIDTH 16.2 % (12.0-16.0); RED CELL COUNT 3.29 10/6/uL (4.0-5.6); WHITE BLOOD CELLS 4.4 10/3/uL (4.5-10.5)
[2016-11-04 06:38] LABS: MANUAL DIFF NO %
[2016-11-04 06:40] LABS: BUN (BLOOD UREA NITROGEN) 7 MG/DL (6-23); CALCIUM, SERUM 8.4 MG/DL (8.5-10.4); CHLORIDE, SERUM 104 MMOL/L (96-112); CO2 (CARBON DIOXIDE) 29 MMOL/L (24-34); CREATININE 0.51 MG/DL (0.55-1.02); GFR AFRICAN AMERICAN 123 ML/MIN (>=60); GFR NON AFRICAN AMERICAN 106 ML/MIN (>=60); POTASSIUM, SERUM 3.8 MMOL/L (3.5-5.3); SODIUM, SERUM 144 MMOL/L (135-148)
[2016-11-04 06:41] LABS: ALBUMIN 2.6 G/DL (3.5-5.0); GLUCOSE, SERUM 170 MG/DL (60-99); PHOSPHORUS, SERUM 3.7 MG/DL (2.5-4.5)
[2016-11-05 06:13] LABS: INTERNATIONAL NORMAL RATI 2.2 UNITS (-); PROTIME (NOT ORD) 24.6 SEC (12.0-14.5)
[2016-11-05 06:25] LABS: ALBUMIN 2.8 G/DL (3.5-5.0); BUN (BLOOD UREA NITROGEN) 7 MG/DL (6-23); CHLORIDE, SERUM 104 MMOL/L (96-112); CO2 (CARBON DIOXIDE) 28 MMOL/L (24-34); CREATININE 0.48 MG/DL (0.55-1.02); GFR AFRICAN AMERICAN 125 ML/MIN (>=60); GFR NON AFRICAN AMERICAN 108 ML/MIN (>=60); PHOSPHORUS, SERUM 4.1 MG/DL (2.5-4.5); POTASSIUM, SERUM 3.9 MMOL/L (3.5-5.3); SODIUM, SERUM 140 MMOL/L (135-148)
[2016-11-05 06:28] LABS: GLUCOSE, SERUM 134 MG/DL (60-99)
[2016-11-05] MEDS ORDERED: NEUR100 PO (14:26)
[2016-11-05] MEDS ORDERED: NYSTATPOW TOP (14:29)
[2016-11-05] MEDS ORDERED: MIRALAX POWDER1 PKT PO (14:29)
[2016-11-05] MEDS ORDERED: VANCO1P IV (14:34)
[2016-11-05] MEDS ORDERED: PERCOCET 10/3251 TAB PO (16:16)
== END 2016-11-05 18:48 | disposition home health service (06) | DRG 158 ==
LOC: ER 21:08 → 6NO 23:59
PROVIDERS: Emergency Medicine; Internal Medicine
PROC: 02HV33Z Insertion of Infusion Device into Superior Vena Cava, Percutaneous Approach (ICD-10-PCS; principal; 2016-11-02)
PROC: 4A02X4A Measurement of Cardiac Electrical Activity, Guidance, External Approach (ICD-10-PCS; 2016-11-02)
DX: K12.2 Cellulitis and abscess of mouth (principal); D68.59 Other primary thrombophilia; E11.42 Type 2 diabetes mellitus with diabetic polyneuropathy; E11.65 Type 2 diabetes mellitus with hyperglycemia; F20.9 Schizophrenia, unspecified; B95.62 Methicillin resistant Staphylococcus aureus infection as the cause of diseases classified elsewhere; I87.2 Venous insufficiency (chronic) (peripheral); E03.9 Hypothyroidism, unspecified; G89.4 Chronic pain syndrome; R20.0 Anesthesia of skin; T42.6X5A Adverse effect of other antiepileptic and sedative-hypnotic drugs, initial encounter; F32.9 Major depressive disorder, single episode, unspecified; E78.5 Hyperlipidemia, unspecified; M79.7 Fibromyalgia; M06.9 Rheumatoid arthritis, unspecified; B37.2 Candidiasis of skin and nail; K59.03 Drug induced constipation; T40.2X5A Adverse effect of other opioids, initial encounter; Z86.718 Personal history of other venous thrombosis and embolism; Z79.899 Other long term (current) drug therapy; Z79.01 Long term (current) use of anticoagulants; Z88.2 Allergy status to sulfonamides; Z88.1 Allergy status to other antibiotic agents
CPT/HCPCS: 36569; 70487; 70551-52; 71020; 80048; 80053; 80069; 80202; 81001; 82962; 83735; 85025; 85610; 85730; 87040; 93005; 93970; 96374; 99285; A9270-GY; C1751; J1170; J3370; J8610; Q9967

== ENCOUNTER 2016-11-28 09:04 | Emergency (ER) | payer MEDICAID ==
[~2016-11-28 09:04] MED LIST changes: +BEPOTASTINE OPH; +LOP25 PO; +MIRALAX POWDER1 PKT PO; +NEUR100 PO; +NYSTATPOW TOP; +OYST-CAL500 MG PO; +VANCO1P IV
[2016-11-28 09:47] LABS: BASOPHILS 0.4 %; BASOPHILS ABSOLUTE 0.04 10/3/uL (0.0-0.16); EOSINOPHILS 2.8 %; EOSINOPHILS ABSOLUTE 0.25 10/3/uL (0.0-0.53); HEMATOCRIT 31.6 % (36.0-48.0); HEMOGLOBIN 10.4 g/dL (12.0-16.0); IMMATURE GRANULOCYTES 0.2 %; LYMPHOCYTES 13.3 %; LYMPHOCYTES ABSOLUTE 1.18 10/3/uL (0.67-4.30); MEAN CORPUS HGB CONC 32.9 g/dL (32.0-36.0); MEAN CORPUSCULAR HEMOGLOB 29.1 pg (26.0-34.0); MEAN PLATELET VOLUME 8.5 fL (9.2-13.0); MONOCYTES 4.6 %; MONOCYTES ABSOLUTE 0.41 10/3/uL (0.21-1.20); NEUTROPHILS 78.7 %; NEUTROPHILS ABSOLUTE 6.99 10/3/uL (2.02-8.40); RBC DISTRIBUTION WIDTH 15.5 % (12.0-16.0); RED CELL COUNT 3.58 10/6/uL (4.0-5.6)
[2016-11-28 09:48] LABS: IMMATURE GRANULOCYTES ABSOLUTE 0.02 10/3/uL (0.0-0.11); MANUAL DIFF NO %; MEAN CORPUSCULAR VOLUME 88.3 fL (80-100); PLATELET COUNT 272 10/3/uL (150-400); WHITE BLOOD CELLS 8.9 10/3/uL (4.5-10.5)
[2016-11-28 10:00] LABS: ASCORBIC ACID (UR NOT ORDER) NEG (NEG); BILIRUBIN, URINE NEGATIVE (NEG); ER URINALYSIS TAT 0 Hrs 10 Mins; KETONE, URINE TRACE MG/DL (NEG); LEUKOCYTE ESTERASE(NOT OR NEG (NEG); NITRITE (URINE) NEG (NEG); WBC (NOT ORDERED) (RFLEX) 3 (0-5)
[2016-11-28 10:01] LABS: A/G RATIO 0.7 (0.7-1.9); ALBUMIN 2.7 G/DL (3.5-5.0); ALKALINE PHOSPHATASE 105 U/L (45-117); BUN (BLOOD UREA NITROGEN) 8 MG/DL (6-23); CALCIUM, SERUM 8.6 MG/DL (8.5-10.4); CHLORIDE, SERUM 105 MMOL/L (96-112); CO2 (CARBON DIOXIDE) 28 MMOL/L (24-34); GFR AFRICAN AMERICAN 111 ML/MIN (>=60); GFR NON AFRICAN AMERICAN 96 ML/MIN (>=60); GLOBULIN 3.8 G/DL (2.5-4.1); GLUCOSE, SERUM 287 MG/DL (60-99); POTASSIUM, SERUM 3.5 MMOL/L (3.5-5.3); SGOT(AST) 10 U/L (5-40); SGPT(ALT) 17 U/L (5-65); SODIUM, SERUM 140 MMOL/L (135-148); TOTAL BILIRUBIN 0.3 MG/DL (0-1.2); TOTAL PROTEIN 6.5 G/DL (6.0-8.5)
[2016-11-28 10:13] LABS: BAND NEUTROPHILS 1 %; EOSINOPHILS 4 %; EOSINOPHILS ABSOLUTE (CALC) 0.36 10/3/uL (0.0-0.53); ER DIFF TAT 0 Hrs 31 Mins; LYMPHOCYTES 20 %; LYMPHOCYTES ABSOLUTE (CALC) 1.78 10/3/uL (0.67-4.30); MONOCYTES 3 %; MONOCYTES ABSOLUTE (CALC) 0.27 10/3/uL (0.21-1.20); PLATELET ESTIMATE ADQ (ADEQUATE); SEGMENTED NEUTROPHIL (0) 72 %; TOTAL NUCLEATED CELLS 100
[2016-11-28 10:14] LABS: POLYCHROMASIA 1+ (2-5/OIF) (0-1/OIF)
== END 2016-11-28 11:42 | disposition home or self-care (01) ==
LOC: ER 09:04
PROVIDERS: Emergency Medicine
DX: A04.7 Enterocolitis due to Clostridium difficile (principal); I10 Essential (primary) hypertension; K21.9 Gastro-esophageal reflux disease without esophagitis; Z88.5 Allergy status to narcotic agent; Z88.1 Allergy status to other antibiotic agents; Z88.2 Allergy status to sulfonamides; Z88.8 Allergy status to other drugs, medicaments and biological substances; Z79.4 Long term (current) use of insulin; Z79.01 Long term (current) use of anticoagulants; Z79.899 Other long term (current) drug therapy
CPT/HCPCS: 80053; 81001; 85025; 87045; 87046; 87046-59; 87328; 87329; 87493; 87493-59; 87899; 87899-59; 89055; 93005; 99284

== ENCOUNTER 2016-12-10 20:35 | Emergency (ER) | payer MEDICAID ==
[2016-12-10 21:05] LABS: BASOPHILS 0.2 %; BASOPHILS ABSOLUTE 0.02 10/3/uL (0.0-0.16); EOSINOPHILS 0.1 %; EOSINOPHILS ABSOLUTE 0.01 10/3/uL (0.0-0.53); ER CBC TAT 0 Hrs 00 Mins; HEMOGLOBIN 11.6 g/dL (12.0-16.0); IMMATURE GRANULOCYTES 0.1 %; IMMATURE GRANULOCYTES ABSOLUTE 0.01 10/3/uL (0.0-0.11); LYMPHOCYTES ABSOLUTE 1.01 10/3/uL (0.67-4.30); MEAN CORPUS HGB CONC 32.5 g/dL (32.0-36.0); MEAN CORPUSCULAR HEMOGLOB 28.4 pg (26.0-34.0); MEAN CORPUSCULAR VOLUME 87.5 fL (80-100); MEAN PLATELET VOLUME 8.4 fL (9.2-13.0); MONOCYTES 4.1 %; MONOCYTES ABSOLUTE 0.46 10/3/uL (0.21-1.20); NEUTROPHILS 86.5 %; NEUTROPHILS ABSOLUTE 9.72 10/3/uL (2.02-8.40); RBC DISTRIBUTION WIDTH 16.4 % (12.0-16.0); RED CELL COUNT 4.08 10/6/uL (4.0-5.6); WHITE BLOOD CELLS 11.2 10/3/uL (4.5-10.5)
[2016-12-10 21:06] LABS: HEMATOCRIT 35.7 % (36.0-48.0); MANUAL DIFF NO %; PLATELET COUNT 451 10/3/uL (150-400)
[2016-12-10 21:14] LABS: INTERNATIONAL NORMAL RATI 3.1 UNITS (-)
[2016-12-10 21:17] LABS: D-DIMER QUANTITATIVE 0.43 ug/mLFEU (< 0.50)
[2016-12-10 21:20] LABS: BUN (BLOOD UREA NITROGEN) 10 MG/DL (6-23); CALCIUM, SERUM 9.2 MG/DL (8.5-10.4); CHEST PAIN PROFILE TAT 0 Hrs 00 Mins; CHLORIDE, SERUM 99 MMOL/L (96-112); CO2 (CARBON DIOXIDE) 29 MMOL/L (24-34); CREATININE 0.68 MG/DL (0.55-1.02); GFR AFRICAN AMERICAN 112 ML/MIN (>=60); GFR NON AFRICAN AMERICAN 96 ML/MIN (>=60); SODIUM, SERUM 135 MMOL/L (135-148); TROPONIN I <0.02 NG/ML (<0.05)
[2016-12-10 21:21] LABS: GLUCOSE, SERUM 313 MG/DL (60-99)
[2016-12-10 21:23] LABS: PROTIME (NOT ORD) 31.3 SEC (12.0-14.5)
[2016-12-10 22:12] LABS: SED RATE 52 MM/HR (0-20)
== END 2016-12-10 23:10 | disposition home or self-care (01) ==
LOC: ER 20:35
PROVIDERS: Emergency Medicine
DX: M25.512 Pain in left shoulder (principal); R07.89 Other chest pain; E11.9 Type 2 diabetes mellitus without complications; Z86.73 Personal history of transient ischemic attack (TIA), and cerebral infarction without residual deficits; Z86.718 Personal history of other venous thrombosis and embolism; Z88.2 Allergy status to sulfonamides; Z88.1 Allergy status to other antibiotic agents; Z88.5 Allergy status to narcotic agent; Z88.8 Allergy status to other drugs, medicaments and biological substances; Z79.4 Long term (current) use of insulin; Z79.899 Other long term (current) drug therapy; Z79.01 Long term (current) use of anticoagulants
CPT/HCPCS: 71010; 73030-LT; 80048; 83735; 84484; 85025; 85379; 85610; 85652; 85730; 93005; 96374; 99285; J1170; J2405

== ENCOUNTER 2016-12-19 17:52 | Inpatient (IN) | payer MEDICAID ==
--- NOTE | ~2016-12-19 | DS ---
Discharge Summary [facility] [address] [place]. [address] NAME: LEON RANDHAWA : 56 STATUS : ADM IN [facility]#: [id number] AGE: 56 ADM/REG DATE : 12/19/16 MR#: [id number] REPORT SERV DATE: 12/25/16 DICTATED BY: ATILIO KING DATE: 12/25/16 REPORT STATUS : Draft TRANSCRIBED BY: MODL DATE: 12/25/16 ADMISSION DATE: 12/19/2016 DISCHARGE DATE: 12/25/2016 FINAL HOSPITAL DIAGNOSES: 1. Clostridium difficile, recurrent. 2. Chronic Coumadin anticoagulation. 3. Anemia. 4. Diabetes. 5. Hypothyroidism. 6. Depression and anxiety. 7. Chronic pain. CONSULTATIONS: Infectious Disease. PROCEDURES: CT scan of the abdomen and pelvis done on the showing mildly thickened appearance of the cecum, ascending colon, descending colon, and sigmoid colon with mild edema and adjacent fat likely representing colitis. No evidence of abscess or perforation. Prominent right lower quadrant mesenteric lymph nodes likely reactive. Nonobstructive left nephrolithiasis. Post cholecystectomy. Prior surgical changes on the sacral spine. CURRENT PHYSICAL FINDINGS AND HPI: Please see dictated HP by Dr. Emanuel Gan. In brief, the patient is a 56-year-old female, who was admitted with colitis. Vital signs at the time of presentation, BP was 115/64, initial temperature was 98.1, her T-max was 102.5 on the , but no further temperatures since that time. On admission, her procalcitonin was 0.15, no significant abnormalities on her BMP, glucose was elevated in the 300, albumin was 2.7, A1c was 8.6, lactate was 1.0. Initial white count was 10.3, highest white count was on the 13.7. Mild anemia is noted with a presenting hemoglobin of 9.6. Initial INR was 2.1. Subsequent INRs have been in the 2.5-3.5 range. Urinalysis initial showed large leukocyte esterase, but repeat UA was negative with urinary culture on the showing mixed joe. Stool done on the was positive for C diff. Giardia and crypto were negative. Blood cultures on the are negative to this point. HOSPITAL COURSE: The patient was admitted with suspected and confirmed recurrent C diff. Because it was recurrence, ID was consulted. The initial urinalysis was done for fear of subsequent infection. She was initially started on liquid diet, IV fluids, p.o. vancomycin, and p.r.n. for anxiety and hypertension. She was also started on reduced dose insulin and sliding scale insulin. Pharmacy was consulted for her Coumadin management. She was initially started back on 4 mg, rapidly titrating down to the following day with her INRs. ID answered her initial consult and did not recommend treating the UTI unless repeat urine was positive. The 2nd sample was done after a straight cath. The patient did have some urinary retention that had resolved prior to discharge. On the , her Coumadin was actually held as it was On the also. On the , she asked to restart her Seroquel which her previous psychiatrist had her on, this was done. On the evening of the , she had some asymptomatic hypotension and resolved with IV fluids. A subsequent INR level was over 6, however, on repeat confirmatory test, it was 3. This was felt to be an error. Her Discharge Summary [address] [address] NAME: LEON RANDHAWA : 56 STATUS : ADM IN PAT#: [id number] AGE: 56 ADM/REG DATE : 12/19/16 MR#: [id number] REPORT SERV DATE: 12/25/16 DICTATED BY: ATILIO KING DATE: 12/25/16 REPORT STATUS : Draft TRANSCRIBED BY: MARGO DATE: 12/25/16 Coumadin was held again on the . On the , she was assessed. She reported voiding freely as did nursing without any further difficulties. She did have a high heart rate and blood pressure, but these were rechecked and fine. She had held her Lopressor that morning. Her only other questions were general recommendations on her precautions to use with her C diff. She requested some nystatin for some intertriginous candidiasis and she requested a dose decrease in her Lopressor, which seemed reasonable. DISPOSITION: She is discharged home. She will follow up with her PCP in two weeks for post hospital followup on her reduced dose antihypertensive and to make sure she is tolerating her Seroquel and to make sure her C diff has resolved without incident. MEDICATIONS: Zovirax 800 at bedtime; Os-Mukul 1000 daily; Cymbalta 30 at bedtime, 60 a.m.; Vytorin 10/80; folic acid 1 mg; Neurontin 200 t.i.d. She will return to her home sliding scale and home Levemir dose of 35, although these are higher doses and she was seen in the hospital. She will monitor sugars closely. Synthroid 50 one per day, Lopressor we will go to 25 b.i.d., Nexium 40, Lyrica 150, Seroquel 50, Zanaflex 4 at bedtime with a b.i.d. dose p.r.n., Desyrel 100 at bedtime. I recommended Coumadin dose to be 1 mg with her to follow a repeat INR mid-week, [place] 5/325 t.i.d., Atarax 50 t.i.d., glucose 500 b.i.d., methotrexate 12.5 on Wednesdays, and Bepreve 1.5 ophthalmic. TLF/MODL Atilio King M.D. / [id number] CC: Kim Rocha D.O.
--- NOTE | ~2016-12-19 | HP ---
History And Physical [facility] [address] [facility] [address] [place]. [address] NAME: LEON RANDHAWA : 56 STATUS : ADM IN [facility]#: [id number] AGE: 56 ADM/REG DATE : 12/19/16 MR#: [id number] REPORT SERV DATE: 12/19/16 DICTATED BY: EMANUEL GAN DATE: 12/19/16 REPORT STATUS : Draft TRANSCRIBED BY: MODL DATE: 12/19/16 DATE OF ADMISSION: 12/19/2016 CHIEF COMPLAINT: Diarrhea, "likely C. diff has returned." HISTORY OF PRESENT ILLNESS: Obtained from the patient as well as from the patient's family present at bedside and emergency room documents. Also, prior medical records available to us were thoroughly reviewed. According to the information available, the patient is a pleasant 56-year-old white woman with a complex medical history significant for diabetes insulin dependent, depression and anxiety, chronic pain syndrome who has a history of chronic anticoagulation on Coumadin. The patient was admitted and treated in September and October 2016 at [facility] for significant and persistent left facial MRSA cellulitis and abscesses with incision and drainages. The patient seemed to have recovered as good as possible after that hospitalization and she was seen in the emergency room on 11/26/2016 for diarrhea and abdominal pain. At that time, the patient was diagnosed with C. diff and she was prescribed Flagyl, uncertain to us exactly the strength and schedule, but only for two weeks. The patient stated that she has been off Flagyl for less than a week, and she started developing again abdominal pain, cramping, and multiple bouts of diarrhea similar with her previous stools. She had a fever of 100.6 at home and started to have associated nausea. No dysuria reported or increased urinary frequency. No chest pain. No palpitations. No other change in medications and apparently no recent antibiotic therapy besides the Flagyl prescribed specifically for C. diff from the emergency room. In our emergency room department, the patient was investigated. She had a C. diff sent out, results are still pending, but with clinical aspect of diarrhea significant of returning C. diff. Had a CT scan of the abdomen and pelvis done without contrast due to her abdominal pain, showed colitis of cecum, ascending and sigmoid colon (full report attached to the chart and discussed with the patient and family). Because of the above presentation and findings and because of the highly suspicion of her probably C. diff on returning/incomplete treatment, the patient was referred to the Hospitalist Service for further management and evaluation. PAST MEDICAL HISTORY: As above, quite complex. Significant for thromboembolic disease with DVT in the past and protein S deficiency, on chronic anti-coagulation with Coumadin; history of hypertension; history of diabetes type 2 insulin dependent; hyperlipidemia; hypothyroidism; history of rheumatoid arthritis, on chronic immunosuppressive therapy, previously on steroids; history of depression and anxiety; history of reported schizophrenia, presently off medications and stable; history of chronic pain syndrome; peripheral neuropathy; hyperlipidemia; fibromyalgia; history of GERD; history of anemia; history of previous MRSA infection in her back and more recent MRSA infection; left facial cellulitis and facial abscess (complex oral maxillofacial abscess). PAST SURGICAL HISTORY: Significant for left knee surgery x2 in 2005 and 2006, spinal fusion x2 in 1991, 1982, cholecystectomy in 1982, right breast lumpectomy in 1993, carpal tunnel release in 1983, ORIF femoral fracture in 2013, cardiac catheterization in 2010, orofacial surgery complex in October 2016 with reintervention, tonsillectomy and adenoidectomy in the past. History And Physical [address] [address] NAME: LEON RANDHAWA : 56 STATUS : ADM IN [facility]#: [id number] AGE: 56 ADM/REG DATE : 12/19/16 MR#: [id number] REPORT SERV DATE: 12/19/16 DICTATED BY: EMANUEL GAN DATE: 12/19/16 REPORT STATUS : Draft TRANSCRIBED BY: MARGO DATE: 12/19/16 SOCIAL HISTORY: Living with her family member, . Nonsmoker. Denies alcohol abuse. Denies illicit or recreational drug abuse. FAMILY HISTORY: Significant for hypertension, diabetes, coronary artery disease. ALLERGIES: TO SULFA ANTIBIOTIC, TAMIFLU, VITAMIN D2, CODEINE, NAPROXEN, ERYTHROMYCIN, CLARITHROMYCIN. ALSO, SHE IS ALLERGIC TO PUMPKIN AND STAR ANISE. HOME MEDICATIONS: According the list provided, the patient is supposed to take Zovirax 800 mg p.o. h.s., Cymbalta 60 mg p.o. in the a.m. and 30 mg p.o. q.h.s., Nexium 40 mg p.o. h.s., Vytorin 10/80 one tablet p.o. h.s., folic acid 1 mg p.o. daily, Neurontin 200 mg p.o. t.i.d. three times a day, hydrocodone 5/325 one p.o. q.i.d. p.r.n. pain, hydroxyzine 50 mg p.o. t.i.d. p.r.n. anxiety, NovoLog insulin according to sliding scale, Levemir 35 units subcu q.h.s. Synthroid 50 mcg p.o. daily, metformin 500 mg p.o. b.i.d., methotrexate 12.5 mg p.o. once a week on Wednesday evenings, Lopressor 50 mg p.o. b.i.d., oyster calcium 1000 mg p.o. daily, Lyrica 150 mg p.o. t.i.d., Zanaflex 4 mg p.o. q.h.s. as schedule as well as 4 mg p.o. b.i.d. during the day p.r.n. muscle spasm, trazodone 100 mg p.o. q.h.s., Bepreve 1.5% ophthalmic solution one drop both eyes q.h.s., Coumadin as per instructions 1 mg p.o. on Wednesday, Wednesdays evenings and 3 mg p.o. other days of the week on Wednesday, Wednesday, , Wednesday, . REVIEW OF SYSTEMS: As per H and P, otherwise negative on review of systems. Please note that a comprehensive review of system was obtained and pertinent positives were including in the H and P. PHYSICAL EXAMINATION: GENERAL: Pleasant, cooperative, but pale, obviously ill appearing, in mild distress due to abdominal pain. VITAL SIGNS: Upon arrival in the emergency room, blood pressure 115/64, pulse 71, respiratory rate 18, temperature 98.1, oxygen saturation 95% in room air. HEENT: Pupils equal, round, and reactive to light. Extraocular movements intact. Throat, mild erythema. No exudate. NECK: Supple. No JVD. No bruit. No thyromegaly. No lymph nodes. LUNGS: Bilateral air entry with few bibasilary crackles. No wheezing. Good airway movement. HEART: Positive S1, S2. Regular rate and rhythm. Positive soft mitral regurgitation murmur at the apex. No rub. No gallop. PMI not displaced by palpation. ABDOMEN: Positive bowel sounds. Soft, obese with mild tenderness over the right lower quadrant and left lower quadrant area. No guarding. No hepatosplenomegaly. No rebound tenderness. EXTREMITIES: Decreased range of motion. Osteoarthritic changes. No clubbing, no cyanosis, no edema. +2 pulses. NEUROLOGIC: Alert and oriented x3. Grossly nonfocal. Appropriate mood and affect. Cranial nerves II through XII are grossly intact. Motor strength 5/5 symmetrical bilateral. Deep tendon reflexes 2/2 symmetrical bilateral. BACK: With decreased range of motion, but no focal localized tenderness. No CVA tenderness. History And Physical [address] [address] NAME: LEON RANDHAWA : 56 STATUS : ADM IN [facility]#: [id number] AGE: 56 ADM/REG DATE : 12/19/16 MR#: [id number] REPORT SERV DATE: 12/19/16 DICTATED BY: EMANUEL GAN DATE: 12/19/16 REPORT STATUS : Draft TRANSCRIBED BY: MODL DATE: 12/19/16 SKIN: No bruises no rashes. No lacerations. SIGNIFICANT LABORATORY DATA: CT scan of the abdomen and pelvis by preliminary report from emergency room showed diffuse colitis cecum, ascending colon, descending colon, and sigmoid colon. No evidence for abscess or perforation (full report attached to chart and discussed with the patient and family). Troponin I less than 0.02. INR 2.1. Urinalysis showed a large LE, negative nitrite, white cells 39, bacteria rare. White cell count 10.3, hemoglobin 9.6 with a hematocrit of 29.3. Please note, there is a documented hematocrit of 35.7 on 12/10/2016, platelet count 303. Sodium 135, potassium 3.5, chloride 101, bicarb 30, BUN 7, creatinine 0.51, glucose 199, calcium 8.9. Liver function tests within normal limits except albumin 2.7 which is slightly low. Lipase 75 which is within normal limits. EKG (personal reading) showed normal sinus rhythm 85 beats per minute. Nonspecific ST-T changes throughout. No acute ST elevation. ASSESSMENT AND PLAN: The patient is a pleasant 56-year-old white woman looking much older than stated age with a complex past medical history that has been admitted with likely colitis due to Clostridium difficile infection. Impression: 1. Gastrointestinal problem. a. Clostridium difficile infection with likely recurrent and partially treated Clostridium difficile during her previous recent visit to the emergency room. b. Pancolitis likely to Clostridium difficile as mentioned above. c. Gastroesophageal reflux disease like history. d. Abdominal pain. Generalized. For all the above, the patient has been admitted on the Hospitalist Service. We are going to start the vancomycin 125 mg p.o. q.6 hours and provide contact isolation as per protocol. Obtain Infectious Disease consult, especially with the possibility of a concomitant urinary tract infection. 2. Urinary tract infection (possible). Due to the patient's lack of symptoms and relatively benign urinalysis, we are going to wait for urine culture result before starting antibiotic. 3. Hematology problem. a. Anemia, with acute blood loss component, unlikely anemia of chronic disease. Monitor H and H. Reported first Hemoccult study done in the emergency room was negative for fecal occult blood. We are going to continue to monitor H and H and support with blood products as indicated. b. Chronic anticoagulation on Coumadin. Continue warfarin for now. Target INR between 2 and 3. c. Protein S deficiency and history of deep venous thrombosis. We are going to continue Coumadin as mentioned above. 4. Endocrinologic problem. a. Diabetes type 2, insulin dependent with complications. We are going to continue Levemir sliding scale. Hold metformin, provide diabetic education. b. Hypothyroid. Continue Synthroid. c. Hyperlipidemia, mixed type. Continue Vytorin as per home dose and schedule. 5. Neurologic and psychiatric problem. History And Physical [address] [place]. [address] NAME: LEON RANDHAWA : 56 STATUS : ADM IN PAT#: [id number] AGE: 56 ADM/REG DATE : 12/19/16 MR#: [id number] REPORT SERV DATE: 12/19/16 DICTATED BY: EMANUEL GAN DATE: 12/19/16 REPORT STATUS : Draft TRANSCRIBED BY: MODL DATE: 12/19/16 a. Depression and anxiety and reported history of schizophrenia, on no medications presently. Provide emotional support. Continue present medications. b. Chronic pain syndrome. Continue her hydrocodone as scheduled and p.r.n. c. Fibromyalgia by history. Continue Lyrica and Neurontin. d. Peripheral neuropathy by history, likely diabetic. Continue medications and provide adequate pain control. e. History of transient ischemic attacks, presently stable. 6. Rheumatoid arthritis, on chronic immunosuppression and disease modifying agents. We are going to continue methotrexate for now. Avoid steroids. 7. Infectious disease problem with:. a. Recent recurrent left facial methicillin-resistant Staphylococcus aureus abscess. b. Herpes zoster infection. Recurrent and presently on suppressive treatment. PROGNOSIS: Moderately good for this admission. Discussed with the patient and the patient's family present at bedside. Questions were answered in full. Please note, the patient is a full code at this moment as discussed with the patient and family at bedside. Please note also the written H and P, and written orders and instructions. RF/MARGO Emanuel Gan M.D. / [id number] CC: MD Ron Tan D.O.
[2016-12-19 18:03] LABS: BASOPHILS 0.2 %; BASOPHILS ABSOLUTE 0.02 10/3/uL (0.0-0.16); EOSINOPHILS 2.7 %; EOSINOPHILS ABSOLUTE 0.28 10/3/uL (0.0-0.53); HEMOGLOBIN 9.6 g/dL (12.0-16.0); IMMATURE GRANULOCYTES 0.2 %; LYMPHOCYTES 10.3 %; LYMPHOCYTES ABSOLUTE 1.06 10/3/uL (0.67-4.30); MEAN CORPUS HGB CONC 32.8 g/dL (32.0-36.0); MEAN CORPUSCULAR HEMOGLOB 28.7 pg (26.0-34.0); MEAN CORPUSCULAR VOLUME 87.5 fL (80-100); MEAN PLATELET VOLUME 8.4 fL (9.2-13.0); MONOCYTES 5.5 %; MONOCYTES ABSOLUTE 0.57 10/3/uL (0.21-1.20); NEUTROPHILS 81.1 %; NEUTROPHILS ABSOLUTE 8.33 10/3/uL (2.02-8.40); RBC DISTRIBUTION WIDTH 16.9 % (12.0-16.0); RED CELL COUNT 3.35 10/6/uL (4.0-5.6); WHITE BLOOD CELLS 10.3 10/3/uL (4.5-10.5)
[2016-12-19 18:07] LABS: HEMATOCRIT 29.3 % (36.0-48.0); IMMATURE GRANULOCYTES ABSOLUTE 0.02 10/3/uL (0.0-0.11); MANUAL DIFF NO %; PLATELET COUNT 303 10/3/uL (150-400)
[2016-12-19 18:19] LABS: A/G RATIO 0.7 (0.7-1.9); ALBUMIN 2.7 G/DL (3.5-5.0); BUN (BLOOD UREA NITROGEN) 7 MG/DL (6-23); CALCIUM, SERUM 8.9 MG/DL (8.5-10.4); CHLORIDE, SERUM 101 MMOL/L (96-112); CO2 (CARBON DIOXIDE) 30 MMOL/L (24-34); CREATININE 0.51 MG/DL (0.55-1.02); GFR AFRICAN AMERICAN 123 ML/MIN (>=60); GFR NON AFRICAN AMERICAN 106 ML/MIN (>=60); GLOBULIN 3.9 G/DL (2.5-4.1); POTASSIUM, SERUM 3.5 MMOL/L (3.5-5.3); SGOT(AST) 12 U/L (5-40); SGPT(ALT) 16 U/L (5-65); SODIUM, SERUM 135 MMOL/L (135-148); TOTAL BILIRUBIN 0.3 MG/DL (0-1.2); TOTAL PROTEIN 6.6 G/DL (6.0-8.5)
[2016-12-19 18:20] LABS: ALKALINE PHOSPHATASE 74 U/L (45-117); GLUCOSE, SERUM 199 MG/DL (60-99)
[2016-12-19 18:34] LABS: BAND NEUTROPHILS 3 %; EOSINOPHILS 3 %; EOSINOPHILS ABSOLUTE (CALC) 0.31 10/3/uL (0.0-0.53); ER DIFF TAT 0 Hrs 35 Mins; LYMPHOCYTES 10 %; LYMPHOCYTES ABSOLUTE (CALC) 1.03 10/3/uL (0.67-4.30); MONOCYTES 4 %; MONOCYTES ABSOLUTE (CALC) 0.41 10/3/uL (0.21-1.20); NEUTROPHILS ABSOLUTE (CALC) 8.55 10/3/uL (2.02-8.40); PLATELET ESTIMATE ADQ (ADEQUATE); SEGMENTED NEUTROPHIL (0) 80 %; TOTAL NUCLEATED CELLS 100
[2016-12-19 18:35] LABS: RBC MORPHOLOGY NORM (NORMAL)
[2016-12-19 18:48] LABS: ASCORBIC ACID (UR NOT ORDER) NEG (NEG); BILIRUBIN, URINE NEGATIVE (NEG); ER URINALYSIS TAT 0 Hrs 22 Mins; KETONE, URINE NEGATIVE (NEG); LEUKOCYTE ESTERASE(NOT OR LARGE (NEG); NITRITE (URINE) NEG (NEG); WBC (NOT ORDERED) (RFLEX) 39 (0-5)
[2016-12-19 19:39] LABS: INTERNATIONAL NORMAL RATI 2.1 UNITS (-); PARTIAL THROMBO TIME 66.8 SEC (22.5-37.2)
[2016-12-19 19:42] LABS: PROTIME (NOT ORD) 23.3 SEC (12.0-14.5)
[2016-12-19 19:48] LABS: TROPONIN I <0.02 NG/ML (<0.05)
[2016-12-19] MEDS ORDERED: C1 PO (20:37)
[2016-12-19] MEDS ORDERED: COUMADIN3 MG PO (20:38)
[2016-12-19 23:27] LABS: RETICULOCYTE COUNT 1.6 % (0.5-2.5)
[2016-12-19 23:28] LABS: RETICULOCYTE COUNT ABSOLUTE 53.3 10/3/uL (20.2-119.8)
[2016-12-19 23:39] LABS: FERRITIN 77 NG/ML (8-252); FREE T4 1.43 NG/DL (0.76-1.46); IRON, SERUM 10 MCG/DL (35-150); PHOSPHORUS, SERUM 3.4 MG/DL (2.5-4.5)
[2016-12-20 02:29] LABS: PROCALCITONIN 0.15 ng/mL (<0.5)
[2016-12-20 03:07] LABS: FOLATE 8.4 NG/ML (>5.2); IRON BINDING CAPACITY 195 MCG/DL (225-410)
[2016-12-20 06:12] LABS: BASOPHILS 0.3 %; BASOPHILS ABSOLUTE 0.03 10/3/uL (0.0-0.16); EOSINOPHILS 3.6 %; EOSINOPHILS ABSOLUTE 0.33 10/3/uL (0.0-0.53); HEMATOCRIT 27.3 % (36.0-48.0); HEMOGLOBIN 8.7 g/dL (12.0-16.0); IMMATURE GRANULOCYTES 0.2 %; IMMATURE GRANULOCYTES ABSOLUTE 0.02 10/3/uL (0.0-0.11); LYMPHOCYTES 13.1 %; LYMPHOCYTES ABSOLUTE 1.19 10/3/uL (0.67-4.30); MEAN CORPUS HGB CONC 31.9 g/dL (32.0-36.0); MEAN CORPUSCULAR HEMOGLOB 28.1 pg (26.0-34.0); MEAN CORPUSCULAR VOLUME 88.1 fL (80-100); MEAN PLATELET VOLUME 8.4 fL (9.2-13.0); MONOCYTES 8.6 %; MONOCYTES ABSOLUTE 0.78 10/3/uL (0.21-1.20); NEUTROPHILS 74.2 %; NEUTROPHILS ABSOLUTE 6.75 10/3/uL (2.02-8.40); PLATELET COUNT 297 10/3/uL (150-400); RBC DISTRIBUTION WIDTH 17.2 % (12.0-16.0); WHITE BLOOD CELLS 9.1 10/3/uL (4.5-10.5)
[2016-12-20 06:14] LABS: MANUAL DIFF NO %
[2016-12-20 06:22] LABS: ALBUMIN 2.3 G/DL (3.5-5.0); BUN (BLOOD UREA NITROGEN) 4 MG/DL (6-23); CALCIUM, SERUM 8.6 MG/DL (8.5-10.4); CHLORIDE, SERUM 106 MMOL/L (96-112); CO2 (CARBON DIOXIDE) 28 MMOL/L (24-34); CREATININE 0.46 MG/DL (0.55-1.02); GFR AFRICAN AMERICAN 127 ML/MIN (>=60); GFR NON AFRICAN AMERICAN 110 ML/MIN (>=60); POTASSIUM, SERUM 3.7 MMOL/L (3.5-5.3); SODIUM, SERUM 140 MMOL/L (135-148)
[2016-12-20 06:28] LABS: GLUCOSE, SERUM 159 MG/DL (60-99)
[2016-12-20 06:33] LABS: INTERNATIONAL NORMAL RATI 1.9 UNITS (-); PROTIME (NOT ORD) 21.9 SEC (12.0-14.5)
[2016-12-21 05:49] LABS: BUN (BLOOD UREA NITROGEN) 4 MG/DL (6-23); CALCIUM, SERUM 8.4 MG/DL (8.5-10.4); CHLORIDE, SERUM 105 MMOL/L (96-112); CREATININE 0.57 MG/DL (0.55-1.02); GFR AFRICAN AMERICAN 118 ML/MIN (>=60); GFR NON AFRICAN AMERICAN 102 ML/MIN (>=60); POTASSIUM, SERUM 3.5 MMOL/L (3.5-5.3)
[2016-12-21 05:50] LABS: CO2 (CARBON DIOXIDE) 19 MMOL/L (24-34); GLUCOSE, SERUM 114 MG/DL (60-99); SODIUM, SERUM 133 MMOL/L (135-148)
[2016-12-21 05:55] LABS: INTERNATIONAL NORMAL RATI 2.4 UNITS (-); PROTIME (NOT ORD) 25.5 SEC (12.0-14.5)
[2016-12-22 07:08] LABS: BASOPHILS 0.3 %; BASOPHILS ABSOLUTE 0.04 10/3/uL (0.0-0.16); EOSINOPHILS 4.3 %; EOSINOPHILS ABSOLUTE 0.59 10/3/uL (0.0-0.53); HEMOGLOBIN 10.1 g/dL (12.0-16.0); IMMATURE GRANULOCYTES 0.4 %; IMMATURE GRANULOCYTES ABSOLUTE 0.05 10/3/uL (0.0-0.11); LYMPHOCYTES 14.7 %; LYMPHOCYTES ABSOLUTE 2.02 10/3/uL (0.67-4.30); MEAN CORPUSCULAR HEMOGLOB 27.8 pg (26.0-34.0); MEAN CORPUSCULAR VOLUME 87.1 fL (80-100); MEAN PLATELET VOLUME 8.4 fL (9.2-13.0); MONOCYTES 5.2 %; MONOCYTES ABSOLUTE 0.72 10/3/uL (0.21-1.20); NEUTROPHILS 75.1 %; PLATELET COUNT 295 10/3/uL (150-400); RBC DISTRIBUTION WIDTH 17.2 % (12.0-16.0); RED CELL COUNT 3.63 10/6/uL (4.0-5.6)
[2016-12-22 07:14] LABS: INTERNATIONAL NORMAL RATI 3.4 UNITS (-)
[2016-12-22 07:19] LABS: HEMATOCRIT 31.6 % (36.0-48.0); MANUAL DIFF NO %; WHITE BLOOD CELLS 13.7 10/3/uL (4.5-10.5)
[2016-12-22 07:35] LABS: BUN (BLOOD UREA NITROGEN) 4 MG/DL (6-23); CALCIUM, SERUM 8.8 MG/DL (8.5-10.4); CHLORIDE, SERUM 106 MMOL/L (96-112); CREATININE 0.45 MG/DL (0.55-1.02); GFR AFRICAN AMERICAN 128 ML/MIN (>=60); GFR NON AFRICAN AMERICAN 110 ML/MIN (>=60)
[2016-12-22 07:36] LABS: CO2 (CARBON DIOXIDE) 29 MMOL/L (24-34); FOLATE 19.6 NG/ML (>5.2); GLUCOSE, SERUM 74 MG/DL (60-99); SODIUM, SERUM 142 MMOL/L (135-148)
[2016-12-22 11:35] LABS: ASCORBIC ACID (UR NOT ORDER) NEG (NEG); BILIRUBIN, URINE NEGATIVE (NEG); KETONE, URINE NEGATIVE (NEG); LEUKOCYTE ESTERASE(NOT OR NEG (NEG); WBC (NOT ORDERED) (RFLEX) 1 (0-5)
[2016-12-23 07:10] LABS: INTERNATIONAL NORMAL RATI 3.8 UNITS (-); PROTIME (NOT ORD) 36.8 SEC (12.0-14.5)
[2016-12-24 06:24] LABS: INTERNATIONAL NORMAL RATI 6.2 UNITS (-); PROTIME (NOT ORD) 54.5 SEC (12.0-14.5)
[2016-12-24 09:27] LABS: BASOPHILS 0.8 %; BASOPHILS ABSOLUTE 0.05 10/3/uL (0.0-0.16); EOSINOPHILS ABSOLUTE 0.48 10/3/uL (0.0-0.53); HEMATOCRIT 29.1 % (36.0-48.0); HEMOGLOBIN 9.2 g/dL (12.0-16.0); IMMATURE GRANULOCYTES 1.3 %; IMMATURE GRANULOCYTES ABSOLUTE 0.08 10/3/uL (0.0-0.11); LYMPHOCYTES 33.6 %; LYMPHOCYTES ABSOLUTE 2.02 10/3/uL (0.67-4.30); MEAN CORPUS HGB CONC 31.6 g/dL (32.0-36.0); MEAN CORPUSCULAR HEMOGLOB 27.5 pg (26.0-34.0); MEAN CORPUSCULAR VOLUME 86.9 fL (80-100); MEAN PLATELET VOLUME 8.8 fL (9.2-13.0); MONOCYTES 10.3 %; MONOCYTES ABSOLUTE 0.62 10/3/uL (0.21-1.20); NEUTROPHILS ABSOLUTE 2.76 10/3/uL (2.02-8.40); PLATELET COUNT 362 10/3/uL (150-400); RBC DISTRIBUTION WIDTH 17.4 % (12.0-16.0); RED CELL COUNT 3.35 10/6/uL (4.0-5.6)
[2016-12-24 09:28] LABS: MANUAL DIFF NO %
[2016-12-24 09:58] LABS: INTERNATIONAL NORMAL RATI 3.3 UNITS (-)
[2016-12-24 10:00] LABS: PROTIME (NOT ORD) 33.5 SEC (12.0-14.5)
[2016-12-25 09:48] LABS: INTERNATIONAL NORMAL RATI 2.9 UNITS (-)
[2016-12-25] MEDS ORDERED: GERIATRIC HP PO (17:03)
[2016-12-25] MEDS ORDERED: SEROQUEL50 MG PO (17:05)
[2016-12-25] MEDS ORDERED: MYCOSCROI TOP (17:06)
[2016-12-25] MEDS ORDERED: VANCOCIN HCL125 MG PO (17:07)
== END 2016-12-25 19:29 | disposition home or self-care (01) | DRG 372 ==
LOC: ER 17:52 → 4SO 22:04
PROVIDERS: Emergency Medicine; Internal Medicine; Physician Assistant; Student in an Organized Health Care Education/Training Program
DX: A04.7 Enterocolitis due to Clostridium difficile (principal); D68.59 Other primary thrombophilia; I95.89 Other hypotension; E11.42 Type 2 diabetes mellitus with diabetic polyneuropathy; L03.116 Cellulitis of left lower limb; Z79.01 Long term (current) use of anticoagulants; I10 Essential (primary) hypertension; Z79.4 Long term (current) use of insulin; F32.9 Major depressive disorder, single episode, unspecified; F41.9 Anxiety disorder, unspecified; G89.4 Chronic pain syndrome; Z86.718 Personal history of other venous thrombosis and embolism; E03.9 Hypothyroidism, unspecified; K21.9 Gastro-esophageal reflux disease without esophagitis; M79.7 Fibromyalgia; Z98.1 Arthrodesis status; Z88.1 Allergy status to other antibiotic agents; Z88.2 Allergy status to sulfonamides; Z88.8 Allergy status to other drugs, medicaments and biological substances; Z88.5 Allergy status to narcotic agent; Z91.018 Allergy to other foods; Z79.891 Long term (current) use of opiate analgesic; Z79.84 Long term (current) use of oral hypoglycemic drugs; Z79.899 Other long term (current) drug therapy; E78.2 Mixed hyperlipidemia; Z86.73 Personal history of transient ischemic attack (TIA), and cerebral infarction without residual deficits; M06.9 Rheumatoid arthritis, unspecified; B02.9 Zoster without complications; R33.9 Retention of urine, unspecified; F20.9 Schizophrenia, unspecified; D64.9 Anemia, unspecified; E86.0 Dehydration
CPT/HCPCS: 74176; 80048; 80053; 80069; 81001; 82607; 82728; 82746; 82962; 83036; 83540; 83550; 83605; 83690; 83735; 84100; 84132; 84145; 84439; 84443; 84484; 85025; 85045; 85610; 85730; 87040; 87086; 87328; 87329; 87493; 87493-59; 89055; 93005; 96374; 96375; 99285; A9270-GY; J2405; J3430